=== PATIENT | male | born 1980 | race Caucasian/White ===

== ENCOUNTER 2024-10-12 07:37 | Outpatient (CLI) | payer OTHER, SELFPAY | END 2024-10-12 07:38 | disposition home or self-care (01) | LOC: AMB 10-13 09:29 | PROVIDERS: PCP Family Medicine; Visit Provider Family Medicine | DX: S09.90XA Unspecified injury of head, initial encounter (principal); R53.1 Weakness; W18.30XA Fall on same level, unspecified, initial encounter; Y92.009 Unspecified place in unspecified non-institutional (private) residence as the place of occurrence of the external cause | CPT/HCPCS: A0425; A0427 ==

== ENCOUNTER 2024-10-12 08:45 | Observation (INO) | payer OTHER, SELFPAY ==
--- OUTSIDE RECORDS SUMMARY | 2024-10-12 08:31 | XMS_ITS | Clinical Summary ---
Author Organization [facility] Address [address] [place] [id number] Care Team Providers Care Library Media Assistant Name Role Phone Jorge Macario MD Primary Care Provider Allergies No known active allergies Medications No known medications Active Problems Problem Noted Date Diagnosed Date MS (multiple sclerosis) 12/13/2023 Immunizations Name Administration Dates Next Due COVID-19 vaccine (eRALOS3-Bio NTech 30mcg/0.3mL) 12YO+ BIVALENT PFKINZA 05/26/2022 COVID-19 vaccine (eRALOS3-Bio NTech 30mcg/0.3mL) KINZA HORAN 08/28/2021,11/21/2020,10/31/2020 Influenza, IIV4 05/26/2022, 2,05/30/2019,05/24/20 18 Tdap 05/31/2012 Family History Medical History Relation Name Comments Clotting disorder Brother blood clot left leg Diabetes Father Diabetes Maternal Grandfather Meniere's disease Mother Relation Name Status Comments Brother Father Maternal Grandfather Alive Maternal Grandmother Alive Mother Alive Paternal Grandfather Paternal Grandmother Social History Tobacco Use Types Packs/Day Years Used Date Smoking Tobacco: Never Smokeless Tobacco: Never Alcohol Use Standard Drinks/Week Comments Yes 0 (1 standard drink = 0.6 oz pur e alcohol) PHQ-2 Answer Date Recorded PHQ-2 Score 0 10/23/2018 Social Connections Answer Date Recorded Frequency of Communication with Friends and Fami ly Not on file 08/20/2021 Financial Resource Strain Answer Date R ecorded Difficulty of Paying Living Expenses Not on file 08/20/2021 Difficulty of Paying Living Expenses Not on file 08/20/2021 Sex and Gender Information Value Date Recorded Sex Assigned at Not on file Legal Sex Male 5:45 AM [employer] Gender Identity Not on file Sexual Orientation Not on file Obstetrics History Last Filed Vital Signs Vital Sign Reading Time Taken Comments Blood Pressure 132/86 08/29/2018 4:42 PM [employer] Pulse 84 08/29/2018 4:42 PM [employer] Temperature 37.4 C (99.4 F) 06/21/2009 11:15 AM CDT Respiratory Rate 20 08/29/2018 4:42 PM [employer] Oxygen Saturation - - Inhaled Oxygen Concentration - - Weight 149.7 kg (330 lb) 07/26/2019 7:44 AM [employer] Height 182.9 cm (6') 07/26/2019 7:44 AM [employer] Body Mass Index 44.76 07/26/2019 7:44 AM [employer] DIRECT[employer] Plan of Treatment Health Maintenance Due Date Last Done Comments HIV for age 15-65 1997 Hepatitis C screening for age 18-79 2000 Depression screening for age 12+ 11/29/2018 11/29/2017 BMI (ht and wt on same day) for age 18+ 08/29/2019 08/29/2018, 01/03/2018, 11/29/2017 Tetanus booster 05/31/2022 05/31/2012 Lipids for age 35-44 11/29/2022 11/29/2017 COVID-19 vaccine series ( season) 2024 05/26/2022, 08/28/2021, 11/21/2020, Additional history exists Influenza for age 9-49 04/23/2024 , 08/28/2021, 05/30/2019, Additional history exists Tdap Completed 05/31/2012 Pneumococcal series for age 6-49 Aged Out No longer eligible based on patient's age to complete this topic Procedures Procedure Name Priority Date/Time Associated Diagnosis Comments LIPID PANEL W REFLEX MEASURED LDL Routine 11/29/2017 5:10 PM CDT Well adult exam from Last 3 Months or Most Recently Relevant to Health Maintenance Results * (ABNORMAL) LIPID PANEL W REFLEX MEASURED LDL (11/29/2017 5:10 PM CDT) CHOLESTEROL,TOTAL 162 100 - 199 mg/dL 11/29/2017 6:15 PM CDT [facility] TRIGLYCERIDES 117 <150 mg/dL 11/29/2017 6:15 PM CDT [facility] HDL CHOLESTEROL 39(L) >40 mg/dL 8 6:15 PM CDT [facility] NON-HDL CHOLESTEROL 123 <145 mg/dl 11/29/2017 6:15 PM CDT [facility] CHOL/HDL RATIO 4.15 <4.50 11/29/2017 6:15 PM CDT [facility] LDL CHOLESTEROL 100 <=130 mg/dL 11/29/2017 6:15 PM CDT [facility] PROVIDER ORDERED STATUS RANDOM 11/29/2017 6:15 PM CDT [facility] Blood BLOOD SPECIMEN / Unknown Venipuncture / Unknown 11/29/2017 5:10 PM CDT 11/29/2017 5:14 PM CDT Jorge Macario MD CHEMISTRY Final R esult [address] [id number] from Last 3 Months or Most Recently Relevant to Health Maintenance Insurance MEDICARE ADVANTAGE [employer] * Guarantor: [employer] Account Type Relation to Patient Date of Phone Billing Address [facility] [address] [employer] 08/23/2000 ATTN GAMALIEL MARTELL [phone] [id number] Care Teams Library Media Assistant Relationship Specialty Start Date End Date Jorge Macario MD [address] [facility] [place] [phone] PCP - General 01/23/06
--- OUTSIDE RECORDS SUMMARY | 2024-10-12 08:32 | XMS_ITS | Clinical Summary ---
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 Role Phone infusion, infusion Unavailable [phone] Conditions or Problems Problem Name Problem Code Onset Date Status Entry Date Provider Comment Standard Description Annotate Restless legs 04843697 (SNOMED CT) 02/05 Active 02/05 Cass Marleni Cherucheril PA-C Restless legs Urinary urgency 59403826 (SNOMED CT) 02/05 Active 02/05 Cass Marleni Cherucheril PA-C Urgent desire to urinate B12 deficiency 617733702 (SNOMED CT) 02/05 Active 02/05 Cass Marleni Cherucheril PA-C Cobalamin deficiency Dysphagia 40385819 (SNOMED CT) 09/18 Active 09/18 Cody Lee MD Dysphagia Urinary incontinenc e 077657910 (SNOMED CT) 09/18 Active 09/18 Cody Lee MD Urinary incontinence MRI, brain, abnormal 043217706 (SNOMED CT) 09/26 Resolved 09/26 Cody Lee MD Magnetic resonance imaging of brain abnormal Weakness, left side of body 950510399 (SNOMED CT) 09/18 Active 09/18 Cody Lee MD Left hemiparesis Multiple sclerosis 86500870 (SNOMED CT) 10/11 Resolved 10/11 Cody Lee MD Multiple sclerosis Shoulder pain, left [id number] 529079 (SNOMED CT) 12/19 Resolved 12/19 Cody Lee MD Pain of left shoulder joint Multiple sclerosis, primary progressive 176878791 (SNOMED CT) 09/18 Active 09/18 Cody Lee MD Primary progressive multiple sclerosis Monitoring of chronic therapeutic medication 939045805 (SNOMED CT) 05/07 Active 05/07 Pati Mancilla [facility] Medication monitoring Shoulder pain, left [id number] 851251 (SNOMED CT) 12/19 Removed 12/19 Nessa Barr RN Pain of left shoulder joint Anxiety 062980804 (SNOMED CT) 10/09 Active 10/10 Elisa Leonard PhD Anxiety disorder Mild cognitive impairment 263838485 (SNOMED CT) 10/09 Active 10/10 Elisa Leonard PhD Mild neurocognitive disorder Vitamin D deficiency 85911898 (SNOMED CT) 10/11 Active 10/11 Harrison Parham MD Vitamin D deficiency Multiple sclerosis 17284766 (SNOMED CT) 10/11 Removed 10/11 Harrison Parham MD Multiple sclerosis Fall, hx of Z91.81 (ICD-10-CM) 09/26 Active 09/26 Harrison Parham MD History of falling Gait imbalance 809159337 (SNOMED CT) 09/26 Active 09/26 Harrison Parham MD Abnormal gait due to impairment of balance Numbness parethesias 05716812 (SNOMED CT) 09/26 Active 09/26 Harrison Parham MD Numbness MRI, brain, abnormal 958999569 (SNOMED CT) 09/26 Removed 09/26 Harrison Parham MD Magnetic resonance imaging of brain abnormal Medications Medication Instructions Start Date Stop Date Generic Name ND Provider ESCITALOPRAM OXALATE 20 MG TABS Take 1 tablet by mouth once a day as directed escitalopram oxalate [id number] Cody Lee MD PREDNISONE 10 MG TABS Take 6 on 1st,2nd and 3rd day; take 4 on 4th, 5th and 6th day, take 2 on the 7th, 8th and 9 days; then 1 one day 10th and 11 day, then stop. 09/18 prednisone [id number] Cody Lee MD DIMETHYL FUMARATE 240 MG CPDR TAKE ONE CAPSULE BY MOUTH TWICE DAILY. STORE IN ORIGINAL CONTAINER ATROOM TEMPERATURE. 09/18 dimethyl fumarate 04797191448 Cody Lee MD Vit B12 500 mcg, Multivitamin Vit B12 500 mcg, Multivitamin Cody Lee MD OCREVUS 300 MG/10ML SOLN q 6 month ocrelizumab 23567626246 Cody Burdick MD ESCITALOPRAM OXALATE 20 MG TABS Take 1 tablet by mouth once a day as directed 08/28 escitalopram oxalate 86688443523 Bry Guzman MD DIMETHYL FUMARATE 240 MG CPDR TAKE ONE CAPSULE BY MOUTH TWICE DAILY. STORE IN ORIGINAL CONTAINER ATROOM TEMPERATURE. 10/09 dimethyl fumarate 13610825934 Harrison Parham MD ESCITALOPRAM OXALATE 20 MG TABS Take 1 tablet by mouth once a day as directed 05/04 escitalopram oxalate 95548375424 Harrison Parham MD ESCITALOPRAM OXALATE 20 MG TABS Take 1 tablet by mouth once a day as directed 08/26 escitalopram oxalate 46849012028 Nessa Barr RN DIMETHYL FUMARATE 240 MG CPDR Take 1 capsule by mouth twice a day dimethyl fumarate 05195189887 Estuardo Hercules RN TECFIDERA 240 MG CPDR null dimethyl fumarate 39672433872 Harrison Parham MD DIMETHYL FUMARATE 240 MG CPDR TAKE ONE CAPSULE BY MOUTH TWICE DAILY. STORE IN ORIGINAL CONTAINER ATROOM TEMPERATURE. 10/09 dimethyl fumarate 45345866918 Harrison Parham MD ESCITALOPRAM OXALATE 10 MG TABS Take 1 tablet once a day 04/14 escitalopram oxalate 89541758569 Estuardo Hercules RN ESCITALOPRAM OXALATE 10 MG TABS 1 tablet by mouth once a day as directed 08/26 escitalopram oxalate 40172681881 Harrison Parham MD ESCITALOPRAM OXALATE 10 MG TABS Take 1 tablet once a day 04/14 escitalopram oxalate 58266925763 Estuardo Hercules RN VITAMIN D3 64771 UNIT ORAL TABLET 50,000 IU once weekly for 3 months then OTC Vitamin D 2,000 IU once a day VITAMIN D3 43009 UNIT ORAL TABLET Estuardo Hercules RN DIMETHYL FUMARATE 240 MG CPDR Take 1 capsule by mouth twice a day 10/09 dimethyl fumarate 68782255641 Estuardo Hercules RN TECFIDERA 240 MG CPDR null dimethyl fumarate 39660681996 Harrison Parhma MD PREDNISONE 10 MG TABS Take 6 on 1st,2nd and 3rd day; take 4 on 4th, 5th and 6th day, take 2 on the 7th, 8th and 9 days; then 1 one day 10th and 11 day, then stop. 09/18 prednisone 21823074684 Harrison Parham MD PREDNISONE 10 MG TABS Take 6 on 1st,2nd and 3rd day; take 4 on 4th, 5th and 6th day, take 2 on the 7th, 8th and 9 days; then 1 one day 10th and 11 day, then stop. 04/14 PREDNISONE 20759543785 Harrison Parham MD ESCITALOPRAM OXALATE 10 MG TABS TAKE 1 TABLET DAILY 04/14 ESCITALOPRAM OXALATE 50901813180 Harrison Parham MD DIMETHYL FUMARATE 240 MG CPDR TAKE ONE CAPSULE BY MOUTH TWICE DAILY. STORE IN ORIGINAL CONTAINER ATROOM TEMPERATURE. 10/09 DIMETHYL FUMARATE 79538964824 Harrison Parham MD TECFIDERA 240 MG CPDR null 04/14 TECFIDERA 240 mg cpDR [id number] System Maintenance TECFIDERA 240 MG CPDR TAKE ONE CAPSULE BY MOUTH TWICE DAILY. STORE IN ORIGINAL CONTAINER AT ROOM TEMPERATURE. DIMETHYL FUMARATE 10273316866 Harrison Parham MD ESCITALOPRAM OXALATE 10 MG TABS One PO q day 09/27 ESCITALOPRAM OXALATE 62684167453 Harrison Parham MD TECFIDERA 120 & 240 MG ORAL Start: 120 mg PO bid x7 days, then 240 mg PO bid 05/22 DIMETHYL FUMARATE 19231900391 Harrison Parham MD PREDNISONE 20 MG TABS 3 PO for 3 days, then 2 PO q day for 3 days, then one for 6 days then stop. 05/22 PREDNISONE 70539453910 Harrison Parham MD TECFIDERA 240 MG CPDR TAKE ONE CAPSULE BY MOUTH TWICE DAILY. STORE IN ORIGINAL CONTAINER ATROOM TEMPERATURE. 11/15 DIMETHYL FUMARATE 47863559529 Harrison Parham MD PREDNISONE 20 MG TABS 3 PO for 3 days, then 2 PO q day for 3 days, then one for 6 days then stop. 05/22 PREDNISONE 52024362611 Harrison Parham MD TECFIDERA 240 MG CPDR TAKE ONE CAPSULE BY MOUTH TWICE DAILY (AFTER COMPLETING STARTER PACK) 01/26 DIMETHYL FUMARATE 61713827392 Harrison Parham MD TECFIDERA 120 & 240 MG ORAL Start: 120 mg PO bid x7 days, then 240 mg PO bid 05/22 DIMETHYL FUMARATE 60128096806 Harrison Parham MD VITAMIN D3 52939 UNIT ORAL TABLET 50,000 IU once weekly for 3 months then OTC Vitamin D 2,000 IU once a day 04/14 CHOLECALCIFEROL 04405384632 Harrison Parham MD TECFIDERA 120 & 240 MG ORAL Start: 120 mg PO bid x7 days, then 240 mg PO bid; Info: december. dose to 120 mg PO bid 10/21 DIMETHYL FUMARATE 58603229867 Harrison Parham MD VITAMIN D 50,000 IU once weekly for 3 months then OTC Vitamin D 2,000 IU once a day 10/13 VITAMIN D Harrison Parham MD Medications Administered No information available. Allergies, Adverse Reactions, Alerts Observed no known allergies at Results Date Name Value Unit Range Flag Description Office Visit: [facility] Risk [facility] - Screen patient for falls, if positive, provide counseling on fall prevention Fall risk assessment SMOK STATUS unknown if ever smoked Tobacco smoking status Replaced Document: (P) BETA 2 GLYCOPROTEIN I AB (IGG,IGA,IGM), B2 GLYCOPROTEIN ... INTRP * Interpretatio n VIT D2 1,25 * Vitamin D 2, 1,25(OH)2 VIT D3 1,25 * Vitamin D 3, 1,25(OH)2 VIT D 1,25OH * vitamin D 1,25-dihydroxy, serum T4, FREE * ng/dL Thyroxine (T 4) free [Mass/volume] in Serum or Plasma T4, TOTAL * ug/dL Thyroxine ( T4) [Mass/volume] in Serum or Plasma FRT4 * FREE T4 [id number] S * angioten sin 1 converting enzyme, serum ANTICARD IGM * cardioli pin antibody, IgM CARDIOLIPIN * U anti-card iolipin antibody, serum ANTICARD IGA * cardioli pin antibody, IgA [id number] * U/mL Proteina se-3 antibody SSB * Sjogren's syndrome-B, extractable nuclear Ab, serum SSA * Sjogren's syndrome-A, extractable nuclear Ab, serum CRP * mg/dL C reactive pr otein [Mass/volume] in Serum or Plasma RHEUMOT FACT * [iU]/mL Rheumato id factor [Units/volume] in Serum or Plasma ANASCR IFA * EMILIANO SCREEN , IFA LYME DIS AB * Borrelia burgdorferi.VlsE1+p epC10 Ab [Units/volume] in Serum by Immunoassay PTT LA * PTT-LA LUPUS INHIB * LUPUS ANT ICOAGULANT (PT; PPP; QN; ) NEUT CT MANU 3650 CELLS/UL 10*3/mm 3 1500-780 0 N neutrophil count, blood, manual ESR * mm/h Erythrocyte sedimentation rate by Westergren method BILI INDIREC * mg/dL bilirubi n, serum, indirect BILI DIRECT * mg/dL Bilirubin .direct [Mass/volume] in Serum or Plasma ALK PHOS * U/L Alkaline phosphatase [Enzymatic activity/volume] in Blood BILI TOTAL * mg/dL Bilirubin. total [Mass/volume] in Serum or Plasma A/G RATIO * Albumin/Roberta bulin [Mass Ratio] in Serum or Plasma GLOBULIN TOT * g/dL Globulin [Mass/volume] in Serum ALBUMIN * g/dL Albumin [Mass/volume] in Serum or Plasma PROTEIN, TOT * g/dL Protein [Mass/volume] in Serum or Plasma CALCIUM * mg/dL Calcium [Moles/volume] in Serum or Plasma CO2 TOTAL * mmol/L carbon diox chikis, serum, total CHLORIDE * mmol/L Chloride [Moles/volume] in Serum or Plasma POTASSIUM * mmol/L Potassium [Moles/volume] in Serum or Plasma SODIUM * mmol/L Sodium [Moles/volume] in Serum or Plasma BUN/CREAT * Urea nitrogen/Creatinine [Mass Ratio] in Serum or Plasma EGFR IF AFA * mL/min/ 1.73m2 Glomerular filtration rate/1.73 sq M.predicted among blacks [Volume Rate/Area] in Serum, Plasma or Blood by Creatinine-based formula (MDRD) EGFR NOT AFA * mL/min/ 1.73m2 Glomerular filtration rate/1.73 sq M.predicted among non-blacks [Volume Rate/Area] in Serum, Plasma or Blood by Creatinine-based formula (MDRD) CREATININE * mg/dL Creatinine [Mass/volume] in Serum or Plasma BUN * mg/dL Urea nitrogen [Mass/volume] in Serum or Plasma GLUCOSE SER * mg/dL Glucose [Mass/volume] in Serum or Plasma LT_GGT * GGT ACETCHBND AB * acetylch oline binding antibody ACETCHO R AB * nmol/L anti-luz marina tylcholine receptor antibody VOLTGATEDCC * Voltage G ated Calcium Channel Antibodies [id number] * Beta-2 G lycoprotein 1 antibody, IgA [id number] * Beta-2 G lycoprotein 1 antibody, IgM [id number] * Beta-2 G lycoprotein 1 antibody, IgG Replaced Document: (P) AST, ALT, LYMPHOCYTE SUBSET PANEL 4, CBC (INCLUDES DIFF/ ... VIT B1 PLSM * ug/L Vitamin B 1 (thiamine), plasma VITD 25OH TO * VITAMIN D, 25 OH, TOTAL B-12 * pg/mL Cobalamin (Vi tamin B12) [Mass/volume] in Serum or Plasma TSH * u[iU]/m L Thyrotropin [Units/volume] in Serum or Plasma METHYL MALON * nmol/L methylma lonic acid (MMA), serum TEST NAME METHYLMALONIC ACID test, name Internal Other: Verbal Autho rization/Emergency Contact - OBS VERBAL_EMER DONE Verbal authorization and emergency contact Internal Other: Authorizatio n - OBS [email or web address] Yes Authoriza tion: Release of Information - Authorize [facility] - Payment and Healthcare Operations ROIAUTHOTHER Yes Authoriz ation: Release of Information - Authorize Others/Insurance - Payment and Healthcare Operations HIECONSENT Yes Consent To Release information to the Health Information Exchange (HIE) [email or web address] Yes Authorizat ion: Authorization for [facility] to leave messages, voicemail, send text messages, send emails AUTHRELHCARE Yes Authoriz ation: Release/Retrieval of Information to/from Healthcare Facilities, Pharmacy Benefit Payers and Providers AUTHPRIVPRAC Yes Authoriz ation: Notice of privacy practices AUTHBENEFIT Yes Authoriza tion: Assignment of Benefits and Payment Agreement Replaced Document: (P) AST, ALT, LYMPHOCYTE SUBSET PANEL 4, CBC (INCLUDES DIFF/ ... % CD3 * % CD3 lymphocyt es, percent [id number] * % B Lymphs % (CD19) ABS CD19 * ABSOLUTE CD1 9 ANTI-HBC * Hepatitis B virus core IgG+IgM Ab [Presence] in Serum ANTI-HBS * Hepatitis B virus surface Ab [Presence] in Serum IMMUNOGLOM * mg/dL Immunoglob ulin M IMMUNO G * mg/dL IMMUNOGLOBUL IN G IMMUNOGLOB A * IMMUNOGL OBULIN A BASOPHIL % 0.7 % N Basophils/ 100 leukocytes in Blood by Manual count EOSINOPHIL % 2.4 % N Eosinoph ils/100 leukocytes in Blood by Manual count MONOCYTE % 12.3 % N Monocytes/ 100 leukocytes in Blood by Automated count LYMPHS % 24.6 % N Lymphocytes/ 100 leukocytes in Blood by Automated count PMN % 60 % N Neutrophils/1 00 leukocytes in Blood by Automated count BASOPH COUNT 41 CELLS/UL 10*3/mm 3 0-200 N Basophils [#/volume] in Blood by Manual count EOS COUNT 142 CELLS/UL 10*3/mm 3 15-500 N eosinophil count, blood MONOSCT AUTO 726 CELLS/UL 10*3/uL 200-950 N Mon ocytes [#/volume] in Blood by Automated count LYMPH COUNT 1451 CELLS/UL 10*3/mm 3 850-3900 N lymphocyte count, blood NEUTRO COUNT 3540 CELLS/UL 10*3/mm 3 1500-780 0 N neutrophil count, blood MPV 12.5 fL 7.5-12.5 N Platelet solis n volume [Entitic volume] in Blood by Warren PLATELETS 189 THOUSAND/UL 10*3/mm 3 140-400 N Platelets [#/volume] in Blood by Automated count RDW 11.8 % 11.0-15. 0 N Erythrocyte distribution width [Ratio] by Automated count MCHC 33.3 G/DL 32.0-36. 0 N MCHC [Mass/volume] by Automated count MCH 30.6 pg 27.0-33. 0 N MCH [Entitic mass] by Automated count MCV 92.1 fL 80.0-100 .0 N MCV [Entitic volume] by Automated count HCT 47.5 % 38.5-50. 0 N Hematocrit [Volume Fraction] of Blood by Automated count HGB 15.8 g/dL 13.2-17. 1 N Hemoglobin [Mass/volume] in Blood RBC 5.16 MILLION/UL 10*6/mm 3 4.20-5.8 0 N Erythrocytes [#/volume] in Blood by Automated count WBC 5.9 THOUSAND/UL 10*3/mm 3 3.8-10.8 N Leukocytes [#/volume] in Blood by Automated count COMMENT#1 * COMMENT #1 ABS LYMPHOCY * 10*3/uL Absolute Lymphocytes CD4/CD8 % * % T-helper ce lls (CD4) to T-suppressor cells (CD8) ratio ABSOLUTE CD8 * absolute CD8 T-SUPPRESS % * % T-suppre ssor cells (CD8) as percent of blood lymphocytes ABSOLUTECD4 * {Cells} /uL Absolute CD4 T-HELPER % * % T-helper c ells (CD4) as percent of blood lymphocytes SGPT (ALT) * U/L Alanine aminotransferase [Enzymatic activity/volume] in Serum or Plasma SGOT (AST) * U/L Aspartate aminotransferase [Enzymatic activity/volume] in Serum or Plasma Lab Report: STRATIFY JCV(TM) AB (WITH INDEX) W/RFL INHIBITION JCV ANTIBODY NEGATIVE N JCV Ant ibody Results ZZ-GE-unk 0.12 N GE use only - for LinkLogic import when terms are not otherwise specified Office Visit: Office Visit f ax MEDS REVIEW Done Documenta tion of current medications (procedure) Plan of Care Type Date Detail Appointment 11:00 AM Cass Gooden PA-C, [address], [address], [place], [address], Pending order Follow up SABRINA Pending order Follow up SABRINA Pending order [facility] Pending order [facility] Pending order ALT (SGPT) Pending order AST (SGOT) Pending order CBC with Diff/Pl atelet Pending order Hepatitis B Core Ab Pending order Hepatitis B Surf luz marina Ab Pending order Hepatitis B Surf luz marina Antigen Pending order JESUSITA Virus Antibod y w/Reflex to Inhibition Assay Pending order Immunoglobulins IgG/A/M Pending order Physical Therapy Pending order Physical Therapy Pending order Follow up Pending order MRI-Brain W/WO M S Protocol Pending order MRI-Cervical W/W O MS Protocol Pending order MRI-Thoracic W/W O MS Protocol Pending order [facility] Pending order [facility] Pending Order exclud ed from report: Pending order Work Note Pending order ALT (SGPT) Pending order AST (SGOT) Pending order CBC with Diff/Pl atelet Pending order CD4/CD8 Ratio Pr ofile Pending order CD19 (T and B Ce lls Total) Do not Schedule on Wednesday Pending order Hepatitis B Core Ab Pending order Hepatitis B Surf luz marina Ab Pending order Hepatitis B Surf luz marina Antigen Pending order JESUSITA Virus Antibod y w/Reflex to Inhibition Assay Pending order Immunoglobulins IgG/A/M Pending order ALT (SGPT) Pending order AST (SGOT) Pending order CBC with Diff/Pl atelet Pending order CD4/CD8 Ratio Pr ofile Pending order CD19 (T and B Ce lls Total) Do not Schedule on Wednesday Pending order Hepatitis B Core Ab Pending order Hepatitis B Surf luz marina Ab Pending order Hepatitis B Surf luz marina Antigen Pending order JESUSITA Virus Antibod y w/Reflex to Inhibition Assay Pending order Immunoglobulins IgG/A/M Pending order [facility] Pending order [facility] Pending Order exclud ed from report: Pending order Urology Referral Pending order [facility] Pending order Follow up in cli concepcion or telemedicine with provider or SABRINA Pending order Urology Referral Pending order Instructions for Staff Pending order Ferritin Serum Pending order Vitamin D 25 Hyd louisa Pending order Vitamin B12 Pending order MRI-Brain W/WO M S Protocol Pending order MRI-Cervical W/W O MS Protocol Pending order MRI-Thoracic W/W O MS Protocol Pending order ALT (SGPT) Pending order AST (SGOT) Pending order CBC with Diff/Pl atelet Pending order CD4/CD8 Ratio Pr ofile Pending order CD19 (T and B Ce lls Total) Pending order Hepatitis B Core Ab Pending order Hepatitis B Surf luz marina Ab Pending order Hepatitis B Surf luz marina Antigen Pending order Immunoglobulins IgG/A/M Pending order JESUSITA Virus Antibod y w/Reflex to Inhibition Assay Pending order Hepatitis B Surf luz marina Ab Pending Order exclud ed from report: Pending order Hepatitis B Surf luz marina Antigen Pending Order exclud ed from report: Pending order Hepatitis B Core Ab Pending Order exclud ed from report: Pending order ALT (SGPT) Pending order AST (SGOT) Pending order CBC with Diff/Pl atelet Pending order CD4/CD8 Ratio Pr ofile Pending order CD19 (T and B Ce lls Total) Pending order Hepatitis B Core Ab Pending order Hepatitis B Surf luz marina Ab Pending order Hepatitis B Surf luz marina Antigen Pending order JESUSITA Virus Antibod y w/Reflex to Inhibition Assay Pending order Immunoglobulins IgG/A/M Pending order ALT (SGPT) Pending order AST (SGOT) Pending order CBC with Diff/Pl atelet Pending order CD4/CD8 Ratio Pr ofile Pending order CD19 (T and B Ce lls Total) Pending order Hepatitis B Core Ab Pending order Hepatitis B Surf luz marina Ab Pending order Hepatitis B Surf luz marina Antigen Pending order JESUSITA Virus Antibod y w/Reflex to Inhibition Assay Pending order Immunoglobulins IgG/A/M Pending order Speech Therapy Pending order ALT (SGPT) Pending order AST (SGOT) Pending order CBC with Diff/Pl atelet Pending order CD4/CD8 Ratio Pr ofile Pending order JESUSITA Virus Antibod y w/Reflex to Inhibition Assay Pending order CD19 (T and B Ce lls Total) Pending order CD19 (T and B Ce lls Total) Pending order Hepatitis B Surf luz marina Ab Pending order Hepatitis B Surf luz marina Antigen Pending order Immunoglobulins IgG/A/M Pending order Other Lab Pending order Follow up in cli concepcion or telemedicine Pending order Physical Therapy Pending order Other Referral Pending order Follow up SABRINA in clinic Pending order Patient Instruct ions Pending order Methylmalonic Ac id Serum (MMA) Pending order MRI-Cervical W/W O MS Protocol Pending order MRI-Thoracic W/W O MS Protocol Pending order Vitamin B1 (Thia mine) Pending order Vitamin B12 Pending order Vitamin D 25 Hyd louisa Pending order TSH Pending order NMO Spectrum Zahra l (AQP4 with Reflex to MOG) Pending order Other Lab Pending order Follow up Pending order ALT (SGPT) Pending order AST (SGOT) Pending order CBC with Diff/Pl atelet Pending order CD4/CD8 Ratio Pr ofile Pending order CD19 (T and B Ce lls Total) Pending order Hepatitis B Core Ab Pending order Hepatitis B Surf luz marina Ab Pending order Hepatitis B Surf luz marina Antigen Pending order JESUSITA Virus Antibod y w/Reflex to Inhibition Assay Pending order Immunoglobulins IgG/A/M Pending order Other Lab Pending Order exclud ed from report: Pending order Other Order Pending order Physical Therapy Pending order MRI-Brain W/O MS Protocol Pending order Consult Pending order Follow up after testing Pending order ALT (SGPT) Pending order AST (SGOT) Pending order CBC with Diff/Pl atelet Pending order Follow up Pending order MRI-Shoulder W/O Pending order MRI-Brain W/WO M S Protocol Pending order Work Note Pending order Patient Instruct ions Pending order Follow up SABRINA Pending order MRI-Brain W/WO M S Protocol Pending order MRI-Brain W/WO M S Protocol Pending order MRI-Cervical W/W O MS Protocol Pending order Neuropsych Testi ng Pending order Follow up after testing Pending Order exclud ed from report: Pending order Physical Therapy Pending order Patient Instruct ions Pending order Follow up Pending Order exclud ed from report: Pending order Follow up Pending order Follow up after testing Pending order Follow up Pending order Other Referral Pending order Patient Instruct ions Pending order Follow up Pending order JESUSITA Virus Antibod y w/Reflex to Inhibition Assay Pending order Patient Instruct ions Pending order ALT (SGPT) Pending order AST (SGOT) Pending order CBC with Diff/Pl atelet Pending order Vitamin D 25 Hyd louisa Pending order Other Referral Pending order ALT (SGPT) Pending order AST (SGOT) Pending order CBC with Diff/Pl atelet Pending order Vitamin D 25 Hyd louisa Pending order Other Test Pending order Hepatic Function Panel (7) Pending order CBC with Diff/Pl atelet Pending order Vitamin D 25 Hyd louisa Pending order MRI-Brain W/O Pending order MRI-Cervical W/O Pending order Other Referral Pending order JESUSITA Virus Antibod y w/Reflex to Inhibition Assay Pending order Follow up Pending order LP-Lumbar Punctu re Pending order LP-Lumbar Punctu re (CSF processed at [facility]) Pending order Angiotensin-1 Co nverting Enzyme CSF Pending order Bacterial Mening itis Antigen Panel CSF Pending order Cell Count & Dif f CSF Pending order Cytology (test f or malignant cells) CSF Pending order Glucose CSF Pending order Multiple Scleros is Screen CSF w/Serum (lab appt needed) Pending order Myelin Basic Pro tein CSF Pending order ALT (SGPT) Pending order EMILIANO Pending order ANCA Pending order LUZ MARINA (Angiotensin Converting Enzyme) Pending order Anti Cardiolipin Ab - IgA/G/M Pending order AST (SGOT) Pending order Beta 2 Glycoprot ein (IgA/G/M) Pending order CBC no Diff/ Tiffany telet Pending order CBC with Diff/Pl atelet Pending order CD4/CD8 Ratio Pr ofile Pending order C Reactive Prote in (CRP) Qn Pending order Comp Metabolic P jacqueline (14) Pending order ESR (Sedimentati on Rate) Pending order GGT (Gamma GT) Pending order Hepatic Function Panel (7) Pending order HIV 1/2 Ab Scree maricarmen Pending order HTLV 1/2 Ab Pending order JESUSITA Virus Antibod y w/Reflex to Inhibition Assay Pending order Lyme Total Ab w/ Reflex (reflex to Western Blot) Pending order Lupus Anticoagul ant Screen Pending order Methylmalonic Ac id Serum (MMA) Pending order NMO-IgG (Neuromy elitis [facility]) Pending order Paraneoplastic A b - [facility] Pending order Paraneoplastic A b - Torres sendout (send to [facility]) Pending order Rapid Plasma Lesia gin (RPR) Pending order Rheumatoid (RA) Factor Pending order Sjogren's Ab - S SA/SSB (ANTI-Ro/ANTI-La) Pending order T4 Pending order T4 Free Direct Pending order TSH Pending order Vitamin B1 (Thia mine) Pending order Vitamin D 25 Hyd louisa Pending order Vitamin D 1;25-D ihydroxy Patient education Medications Procedures Code Procedure Name Date Entry Date ORDERS Follow up [facility]-[id number] Documentation of current medicatio ns [id number] MRI-Brain W/WO MS Protocol 2 [id number] MRI-Cervical W/WO MS Protocol [id number] MRI-Thoracic W/WO MS Protocol CPT-I3587M ProHance Gadolinium- based MR Contrast - 20 ml vial CPT-91250 MRI Brain W/WO CPT-82199 MRI Cervical W/WO CPT-01495 MRI Thoracic W/WO ORDERS [facility] ORDERS Work Note ORDERS ALT (SGPT) ORDERS AST (SGOT) ORDERS CBC with Diff/Platelet 11/24 ORDERS Hepatitis B Surface Ab 11/24 ORDERS Hepatitis B Core Ab ORDERS Hepatitis B Surface Antigen ORDERS CD4/CD8 Ratio Profile 0 11/24 ORDERS Immunoglobulins IgG/A/M 2023 ORDERS CD19 (T and B Cells Total) Do not Schedul e on Wednesday ORDERS JESUSITA Virus Antibody w/Reflex to Inhibition Assay ORDERS CD19 (T and B Cells Total) Do not Schedul e on Wednesday ORDERS ALT (SGPT) ORDERS AST (SGOT) ORDERS CBC with Diff/Platelet 05/12 ORDERS CD4/CD8 Ratio Profile 2022/0 05/12 ORDERS Hepatitis B Surface Ab 05/12 ORDERS Hepatitis B Surface Antigen ORDERS Hepatitis B Core Ab ORDERS Immunoglobulins IgG/A/M 2022 ORDERS JESUSITA Virus Antibody w/Reflex to Inhibition Assay ORDERS Ocrevus Infusion [facility]-[id number] Urology Referral ORDERS Ferritin Serum ORDERS Instructions for Staff 02/05 ORDERS Follow up in clinic or telemedicine with provider or SABRINA [facility]-[id number] Urology Referral ORDERS Vitamin D 25 Hydroxy ORDERS Vitamin B12 ORDERS Vitamin D 25 Hydroxy ORDERS Vitamin B12 [id number] MRI-Brain W/WO MS Protocol 2 [id number] MRI-Thoracic W/WO MS Protocol [id number] MRI-Cervical W/WO MS Protocol ORDERS Hepatitis B Surface Ab 11/03 ORDERS Hepatitis B Surface Antigen ORDERS Hepatitis B Core Ab ORDERS ALT (SGPT) ORDERS AST (SGOT) ORDERS CBC with Diff/Platelet 11/03 ORDERS CD4/CD8 Ratio Profile 11/03 ORDERS CD19 (T and B Cells Total) 2 ORDERS Immunoglobulins IgG/A/M 2022 ORDERS JESUSITA Virus Antibody w/ Reflex to Inhibition Assay ORDERS ALT (SGPT) ORDERS AST (SGOT) ORDERS CBC with Diff/Platelet 11/03 ORDERS CD4/CD8 Ratio Profile 11/03 ORDERS CD19 (T and B Cells Total) 2 ORDERS Immunoglobulins IgG/A/M 2022 ORDERS JESUSITA Virus Antibody w/ Reflex to Inhibition Assay ORDERS ALT (SGPT) ORDERS AST (SGOT) ORDERS CBC with Diff/Platelet 07/21 ORDERS CD4/CD8 Ratio Profile 09/20 ORDERS CD19 (T and B Cells Total) 2 ORDERS Hepatitis B Core Ab ORDERS Hepatitis B Surface Ab 07/21 ORDERS Hepatitis B Surface Antigen ORDERS JESUSITA Virus Antibody w/ Reflex to Inhibition Assay ORDERS Immunoglobulins IgG/A/M 2021 ORDERS ALT (SGPT) ORDERS AST (SGOT) ORDERS CBC with Diff/Platelet 05/07 ORDERS CD4/CD8 Ratio Profile 05/07 ORDERS CD19 (T and B Cells Total) 2 ORDERS Hepatitis B Core Ab ORDERS Hepatitis B Surface Ab 05/07 ORDERS Hepatitis B Surface Antigen ORDERS JESUSITA Virus Antibody w/ Reflex to Inhibition Assay ORDERS Immunoglobulins IgG/A/M 2021 ORDERS Speech Therapy ORDERS Speech Therapy ORDERS ALT (SGPT) ORDERS AST (SGOT) ORDERS CBC with Diff/Platelet 09/21 ORDERS CD4/CD8 Ratio Profile 09/21 ORDERS JESUSITA Virus Antibody w/ Reflex to Inhibition Assay ORDERS CD19 (T and B Cells Total) 2 ORDERS CD19 (T and B Cells Total) 2 ORDERS Hepatitis B Surface Ab 09/21 ORDERS Hepatitis B Surface Antigen ORDERS Immunoglobulins IgG/A/M 2022 ORDERS Other Lab ORDERS Physical Therapy [id number] Other Referral ORDERS Follow up in clinic or telemedicine 09/18 [facility]-[id number] Documentation of current medicatio ns ORDERS Ocrevus Infusion ORDERS Follow up SABRINA in clinic 2021 ORDERS Patient Instructions ORDERS Methylmalonic Acid Serum (MMA) ORDERS TSH ORDERS NMO Spectrum Eval (AQP4 with Reflex to MO G) ORDERS Vitamin D 25 Hydroxy ORDERS Vitamin B12 ORDERS Vitamin B1 (Thiamine) 01/16 CPT-[id number] ProHance Gadolinium- based MR Contrast - 20 ml vial CPT-14953 MRI Cervical W/WO CPT-04705 MRI Thoracic W/WO [id number] MRI-Cervical W/WO MS Protocol [id number] MRI-Thoracic W/WO MS Protocol ORDERS Follow up ORDERS ALT (SGPT) ORDERS AST (SGOT) ORDERS CBC with Diff/Platelet 01/16 ORDERS CD4/CD8 Ratio Profile 01/16 ORDERS Hepatitis B Core Ab ORDERS Hepatitis B Surface Ab 01/16 ORDERS Hepatitis B Surface Antigen ORDERS Immunoglobulins IgG/A/M 2021 ORDERS CD19 (T and B Cells Total) 2 ORDERS JESUSITA Virus Antibody w/ Reflex to Inhibition Assay ORDERS Other Lab [id number] MRI-Brain W/O MS Protocol 10/01/21 CPT-32621 MRI Brain W/O ORDERS Other Order ORDERS Physical Therapy ORDERS CBC with Diff/Platelet 01/10 ORDERS AST (SGOT) ORDERS ALT (SGPT) [id number] Consult ORDERS Follow up after testing 2020 [id number] Documentation of current medicatio ns ORDERS Follow up [id number] MRI-Brain W/WO MS Protocol 2 [id number] MRI-Shoulder W/O CPT-H5629O ProHance Gadolinium- based MR Contrast - 20 ml vial CPT-52213 MRI Brain W/WO CPT-55185 MRI Upper Extremity (JOINT) W/O 6 ORDERS Patient Instructions [facility]-[id number] Documentation of current medicatio ns ORDERS Work Note ORDERS Follow up SABRINA ORDERS Follow up [id number] MRI-Brain W/WO MS Protocol 2 ORDERS Neuropsych Testing 0 [id number] MRI-Cervical W/WO MS Protocol [id number] MRI-Brain W/WO MS Protocol 2 CPT-99827 MRI Brain W/WO CPT-K3718I ProHance Gadolinium- based MR Contrast - 20 ml vial CPT-23901 MRI Cervical W/WO CPT-57716 Npsy Interview w/Provider - 1st hour 2019 CPT-47207 Npsy Interp/Rpt by Provider - 1st hour 12/10/16 CPT-30832 Npsy Interp/Rpt by Provider - 3 hours CPT-06608 Npsy Test by Provide r (2+ Tests) - 1st 30 min CPT-83223 Npsy Test by Provide r (2+ Tests) - 2.5 hours ORDERS Follow up after testing 2019 [facility]-[id number] Documentation of current medicatio ns ORDERS Follow up ORDERS Patient Instructions ORDERS Physical Therapy [id number] Other Referral ORDERS Patient Instructions ORDERS Patient Instructions SCT-[id number] Other Referral SCT-[id number] Documentation of current medicatio ns ORDERS JESUSITA Virus Antibody w/ Reflex to Inhibition Assay ORDERS ALT (SGPT) ORDERS AST (SGOT) ORDERS CBC with Diff/Platelet 05/22 ORDERS Vitamin D 25 Hydroxy ORDERS Follow up ORDERS Vitamin D 25 Hydroxy ORDERS CBC with Diff/Platelet 01/20 ORDERS AST (SGOT) ORDERS ALT (SGPT) ORDERS Other Test SCT-[id number] Documentation of current medicatio ns SCT-[id number] Other Referral [facility]-[id number] Documentation of current medicatio ns ORDERS Hepatic Function Panel (7) 2 [id number] MRI-Brain W/O [id number] MRI-Cervical W/O ORDERS CBC with Diff/Platelet 12/27 ORDERS Vitamin D 25 Hydroxy ORDERS JESUSITA Virus Antibody w/ Reflex to Inhibition Assay [id number] Documentation of current medicatio ns ORDERS Follow up [id number] LP-Lumbar Puncture 4 ORDERS LP-Lumbar Puncture ( CSF processed at [facility]) CPT-03235 Lumbar Puncture, Diagnostic CPT-55254 Fluoroscopy Guidance and Localization 201 04/24/11 CPT-6045F PQRS Fluoro Documented 10/03 CPT-38902 Blood Draw ORDERS CBC with Diff/Platelet 09/26 ORDERS T4 Free Direct ORDERS TSH ORDERS Vitamin D 25 Hydroxy ORDERS ESR (Sedimentation Rate) 201 04/24/04 ORDERS Comp Metabolic Panel (14) 20 11/10/03 ORDERS GGT (Gamma GT) ORDERS Hepatic Function Panel (7) 2 ORDERS T4 ORDERS CD4/CD8 Ratio Profile 09/26 ORDERS C Reactive Protein (CRP) Qn ORDERS Rheumatoid (RA) Factor 09/26 ORDERS Lyme Total Ab w/Refl ex (reflex to Western Blot) ORDERS Rapid Plasma Reagin (RPR) 20 11/10/03 ORDERS EMILIANO ORDERS LUZ MARINA (Angiotensin Converting Enzyme) 09/26 ORDERS Anti Cardiolipin Ab - IgA/G/M ORDERS Beta 2 Glycoprotein (IgA/G/M) ORDERS ANCA ORDERS Sjogren's Ab - SSA/SSB (ANTI-Ro/ANTI-La) ORDERS Methylmalonic Acid Serum (MMA) ORDERS Vitamin D 1;25-Dihydroxy 201 04/24/04 ORDERS HTLV 1/2 Ab ORDERS NMO-IgG (Neuromyelitis [facility]) ORDERS Vitamin B1 (Thiamine) 09/26 ORDERS Lupus Anticoagulant Screen 2 ORDERS Paraneoplastic Ab - [facility] 20 11/10/03 ORDERS Paraneoplastic Ab - [facility] sendout (send to [facility]) ORDERS Glucose CSF ORDERS Multiple Sclerosis S creen CSF w/Serum (lab appt needed) ORDERS Myelin Basic Protein CSF 201 04/24/04 ORDERS ALT (SGPT) ORDERS AST (SGOT) ORDERS CBC no Diff/ Platelet 09/26 ORDERS HIV 1/2 Ab Screening ORDERS Angiotensin-1 Converting Enzyme CSF 09/26 ORDERS Bacterial Meningitis Antigen Panel CSF 20 11/10/03 ORDERS Cell Count & Diff CSF 09/26 ORDERS Cytology (test for malignant cells) CSF 2 ORDERS JESUSITA Virus Antibody w/ Reflex to Inhibition Assay [facility]-[id number] Documentation of current medicatio ns [facility]-[id number] Documentation of current medicatio ns Vital Signs Date Name Value Unit Description Heart Rate 66 /min pulse rate Height 72 [in_us] height E&M Weight Measured 300 [lb_av] weight E& M BMI (Body Mass Index) 52.32 kg/m2 Bod y Mass Index (Ratio) BP Diastolic 88 mm[Hg] blood pressu re, diastolic BP Systolic 130 mm[Hg] blood pressur e, systolic Respiratory Rate 11 /min respirat ory rate E&M Immunizations No information available. Advance Directives No information available.
[2024-10-12 08:36] VITALS: BP 111/83; PULSE 88; RESP 16; TEMP 36.9; O2SAT 95; BMI 38.0
[2024-10-12 09:00] LABS: Basophils Absolute Auto 0.02 K/uL (0.00-0.30); Basophils Percent Auto 0.2 % (0.0-3.0); Eosinophils Absolute Auto 0.02 K/uL (0.00-0.50); Eosinophils Percent Auto 0.2 % (0.0-7.0); Hematocrit 44.9 % (37.0-53.0); Hemoglobin* 15.2 gm/dL (13.5-17.5); Immature Granulocytes Abs Auto 0.02 K/uL (0.00-0.30); Immature Granulocytes Pct Auto 0.2 %; Mean Corpuscular HGB Conc 34 gm/dL (32-36); Mean Corpuscular Hemoglobin 30 pg (26-34); Mean Corpuscular Volume 88 fL (80-100); Monocytes Percent Auto 13.4 % (0.0-11.0); Platelet Count* 159 K/uL (140-440); RDW Coefficient of Variation % 11.7 % (11.5-15.5); White Blood Count* 10.11 K/uL (4.50-11.00)
--- OUTSIDE RECORDS SUMMARY | 2024-10-12 09:01 | XMS_ITS | Clinical Summary ---
Author Organization [employer] [facility] Address [address] [place] [address] Care Team Providers Care Oncology Social Work Name Role Phone Jorge Macario MD Primary Care Provider Allergies No known active allergies Medications No known medications Active Problems Problem Noted Date Diagnosed Date MS (multiple sclerosis) 12/13/2023 Immunizations Name Administration Dates Next Due COVID-19 vaccine ([employer]-Bio NTech 30mcg/0.3mL) 12YO+ BIVALENT PF MDV 05/26/2022 COVID-19 vaccine (Pfizer-Bio NTech 30mcg/0.3mL) PFKINZA 08/28/2021,11/21/2020,10/31/2020 Influenza, IIV4 05/26/2022, 2,05/30/2019,05/24/20 18 Tdap [...] on file Legal Sex Male 5:45 AM [employer] Gender Identity Not on file Sexual Orientation Not on file Obstetrics History Last Filed Vital Signs Vital Sign Reading Time Taken Comments Blood Pressure 132/86 08/29/2018 4:42 PM [employer] Pulse 84 08/29/2018 4:42 PM [employer] Temperature 37.4 C (99.4 F) 06/21/2009 11:15 AM CDT Respiratory Rate 20 08/29/2018 4:42 PM [employer]IST Oxygen Saturation - - Inhaled Oxygen Concentration - - Weight 149.7 kg (330 lb) 07/26/2019 7:44 AM [employer] SERV[employer]IST Height 182.9 cm (6') 07/26/2019 7:44 AM [employer] Body Mass Index 44.76 07/26/2019 7:44 AM [employer] SERV[employer]IST Plan of Treatment Health Maintenance Due Date [...] - 199 mg/dL 11/29/2017 6:15 PM CDT [facility] TRIGLYCERIDES 117 <150 mg/dL 11/29/2017 6:15 PM CDT [facility] HDL CHOLESTEROL 39(L) >40 mg/dL 8 6:15 PM CDT [facility] NON-HDL CHOLESTEROL 123 <145 mg/dl 11/29/2017 6:15 PM CDT [facility] CHOL/HDL RATIO 4.15 <4.50 11/29/2017 6:15 PM CDT [facility] LDL CHOLESTEROL 100 <=130 mg/dL 11/29/2017 6:15 PM CDT [facility] PROVIDER ORDERED STATUS RANDOM 11/29/2017 6:15 PM CDT [facility] Blood BLOOD SPECIMEN / Unknown Venipuncture / Unknown 11/29/2017 5:10 PM CDT 11/29/2017 5:14 PM CDT Jorge Macario MD CHEMISTRY Final R esult [address] [address] from Last 3 Months or Most Recently Relevant to Health Maintenance Insurance MEDICARE ADVANTAGE MR [employer] INS * Guarantor: [employer] Account Type Relation to Patient Date of Phone Billing Address [facility] [employer] [address] ATTN GAMALIEL MARTELL [phone] [id number] Care Teams Oncology Social Work Relationship Specialty Start Date End Date Jorge Macario MD [address] [facility] [place] [id number] PCP - General 01/23/06
--- OUTSIDE RECORDS SUMMARY | 2024-10-12 09:01 | XMS_ITS | Clinical Summary ---
Author Organization [facility] Address [address] [facility] , [facility] [address] [place] [address] Phone Care Team Providers Care Sports Bookmaker Name Role Phone infusion, infusion Unavailable [phone] Conditions or Problems Problem Name Problem Code Onset Date Status Entry Date Provider Comment Standard Description Annotate Restless legs 53106655 (SNOMED CT) 02/05 Active 02/05 Cass Marleni Cherucheril PA-C Restless legs Urinary urgency 09601069 (SNOMED CT) 02/05 Active 02/05 Cass Marleni Cherucheril PA-C Urgent desire to urinate B12 deficiency 591512022 (SNOMED CT) 02/05 Active 02/05 Cass Marleni Cherucheril PA-C Cobalamin deficiency Dysphagia 47150837 (SNOMED CT) 09/18 Active 09/18 Cody Lee MD Dysphagia Urinary incontinenc e 933183523 (SNOMED CT) 09/18 Active 09/18 Cody Lee MD Urinary incontinence MRI, brain, abnormal 968052218 (SNOMED CT) 09/26 Resolved 09/26 Cody Lee MD Magnetic resonance imaging of brain abnormal Weakness, left side of body 475554321 (SNOMED CT) 09/18 Active 09/18 Cody Lee MD Left hemiparesis Multiple sclerosis 74837418 (SNOMED CT) 10/11 Resolved 10/11 Cody Lee MD Multiple sclerosis Shoulder pain, left [id number] 705626 (SNOMED CT) 12/19 Resolved 12/19 Cody Lee MD Pain of left shoulder joint Multiple sclerosis, primary progressive 816012940 (SNOMED CT) 09/18 Active 09/18 Cody Lee MD Primary progressive multiple sclerosis Monitoring of chronic therapeutic medication 882133116 (SNOMED CT) 05/07 Active 05/07 Pati Mancilla [facility] Medication monitoring Shoulder pain, left [id number] 836175 (SNOMED CT) 12/19 Removed 12/19 Nessa Barr RN Pain of left shoulder joint Anxiety 889571617 (SNOMED CT) 10/09 Active 10/10 Elisa Leonard PhD Anxiety disorder Mild cognitive impairment 096611966 (SNOMED CT) 10/09 Active 10/10 Elisa Leonard PhD Mild neurocognitive disorder Vitamin D deficiency 11196650 (SNOMED CT) 10/11 Active 10/11 Harrison Parham MD Vitamin D deficiency Multiple sclerosis 05372552 (SNOMED CT) 10/11 Removed 10/11 Harrison Parham MD Multiple sclerosis Fall, hx of Z91.81 (ICD-10-CM) 09/26 Active 09/26 Harrison Parham MD History of falling Gait imbalance 510587182 (SNOMED CT) 09/26 Active 09/26 Harrison Parham MD Abnormal gait due to impairment of balance Numbness parethesias 98728511 (SNOMED CT) 09/26 Active 09/26 Harrison Parham MD Numbness MRI, brain, abnormal 921284910 (SNOMED CT) 09/26 Removed 09/26 Harrison Parham MD Magnetic resonance imaging of brain abnormal Medications Medication Instructions Start Date Stop Date Generic Name ND Provider ESCITALOPRAM OXALATE 20 MG TABS Take 1 tablet by mouth once a day as directed escitalopram oxalate [id number] Cody Lee MD PREDNISONE 10 MG TABS Take 6 on 1st,2nd and 3rd day; take 4 on 4th, 5th and 6th day, take 2 on the 7th, 8th and 9 days; then 1 one day 10th and 11 day, then stop. 09/18 prednisone 41834114657 Cody Lee MD DIMETHYL FUMARATE 240 MG CPDR TAKE ONE CAPSULE BY MOUTH TWICE DAILY. STORE IN ORIGINAL CONTAINER ATROOM TEMPERATURE. 09/18 dimethyl fumarate 77150728920 Cody Lee MD Vit B12 500 mcg, Multivitamin Vit B12 500 mcg, Multivitamin Cody Lee MD OCREVUS 300 MG/10ML SOLN q 6 month ocrelizumab 01259181437 Cody Burdick MD ESCITALOPRAM OXALATE 20 MG TABS Take 1 tablet by mouth once a day as directed 08/28 escitalopram oxalate 57270828662 Bry Guzman MD DIMETHYL FUMARATE 240 MG CPDR TAKE ONE CAPSULE BY MOUTH TWICE DAILY. STORE IN ORIGINAL CONTAINER ATROOM TEMPERATURE. 10/09 dimethyl fumarate 94518238016 Harrison Parham MD ESCITALOPRAM OXALATE 20 MG TABS Take 1 tablet by mouth once a day as directed 05/04 escitalopram oxalate 89082253285 Harrison Parham MD ESCITALOPRAM OXALATE 20 MG TABS Take 1 tablet by mouth once a day as directed 08/26 escitalopram oxalate 36771762053 Nessa Barr RN DIMETHYL FUMARATE 240 MG CPDR Take 1 capsule by mouth twice a day dimethyl fumarate 29957097452 Estuardo Hercules RN TECFIDERA 240 MG CPDR null dimethyl fumarate 11463098445 Harrison Parham MD DIMETHYL FUMARATE 240 MG CPDR TAKE ONE CAPSULE BY MOUTH TWICE DAILY. STORE IN ORIGINAL CONTAINER ATROOM TEMPERATURE. 10/09 dimethyl fumarate 68610577637 Harrison Parham MD ESCITALOPRAM OXALATE 10 MG TABS Take 1 tablet once a day 04/14 escitalopram oxalate 26197794901 Estuardo Hercules RN ESCITALOPRAM OXALATE 10 MG TABS 1 tablet by mouth once a day as directed 08/26 escitalopram oxalate 97776425281 Harrison Parham MD ESCITALOPRAM OXALATE 10 MG TABS Take 1 tablet once a day 04/14 escitalopram oxalate 67986049815 Estuardo Hercules RN VITAMIN D3 17273 UNIT ORAL TABLET 50,000 IU once weekly for 3 months then OTC Vitamin D 2,000 IU once a day VITAMIN D3 31410 UNIT ORAL TABLET Estuardo Hercules RN DIMETHYL FUMARATE 240 MG CPDR Take 1 capsule by mouth twice a day 10/09 dimethyl fumarate 75465742129 Estuardo Hercules RN TECFIDERA 240 MG CPDR null dimethyl fumarate 00196935164 Harrison Parham MD PREDNISONE 10 MG TABS Take 6 on 1st,2nd and 3rd day; take 4 on 4th, 5th and 6th day, take 2 on the 7th, 8th and 9 days; then 1 one day 10th and 11 day, then stop. 09/18 prednisone 37443866084 Harrison Parham MD PREDNISONE 10 MG TABS Take 6 on 1st,2nd and 3rd day; take 4 on 4th, 5th and 6th day, take 2 on the 7th, 8th and 9 days; then 1 one day 10th and 11 day, then stop. 04/14 PREDNISONE 69625849555 Harrison Parham MD ESCITALOPRAM OXALATE 10 MG TABS TAKE 1 TABLET DAILY 04/14 ESCITALOPRAM OXALATE 31966907741 Harrison Parham MD DIMETHYL FUMARATE 240 MG CPDR TAKE ONE CAPSULE BY MOUTH TWICE DAILY. STORE IN ORIGINAL CONTAINER ATROOM TEMPERATURE. 10/09 DIMETHYL FUMARATE 63613418632 Harrison Parham MD TECFIDERA 240 MG CPDR null 04/14 TECFIDERA 240 mg cpDR 86423624022 System Maintenance TECFIDERA 240 MG CPDR TAKE ONE CAPSULE BY MOUTH TWICE DAILY. STORE IN ORIGINAL CONTAINER AT ROOM TEMPERATURE. DIMETHYL FUMARATE 37929803358 Harrison Parham MD ESCITALOPRAM OXALATE 10 MG TABS One PO q day 09/27 ESCITALOPRAM OXALATE 17457653673 Harrison Parham MD TECFIDERA 120 & 240 MG ORAL Start: 120 mg PO bid x7 days, then 240 mg PO bid 05/22 DIMETHYL FUMARATE 86145829817 Harrison Parham MD PREDNISONE 20 MG TABS 3 PO for 3 days, then 2 PO q day for 3 days, then one for 6 days then stop. 05/22 PREDNISONE 25816998514 Harrison Parham MD TECFIDERA 240 MG CPDR TAKE ONE CAPSULE BY MOUTH TWICE DAILY. STORE IN ORIGINAL CONTAINER ATROOM TEMPERATURE. 11/15 DIMETHYL FUMARATE 64198084652 Harrison Parham MD PREDNISONE 20 MG TABS 3 PO for 3 days, then 2 PO q day for 3 days, then one for 6 days then stop. 05/22 PREDNISONE 75480840149 Harrison Parham MD TECFIDERA 240 MG CPDR TAKE ONE CAPSULE BY MOUTH TWICE DAILY (AFTER COMPLETING STARTER PACK) 01/26 DIMETHYL FUMARATE 52063928412 Harrison Parham MD TECFIDERA 120 & 240 MG ORAL Start: 120 mg PO bid x7 days, then 240 mg PO bid 05/22 DIMETHYL FUMARATE 17042721775 Harrison Parham MD VITAMIN D3 53659 UNIT ORAL TABLET 50,000 IU once weekly for 3 months then OTC Vitamin D 2,000 IU once a day 04/14 CHOLECALCIFEROL 95505849888 Harrison Parham MD TECFIDERA 120 & 240 MG ORAL Start: 120 mg PO bid x7 days, then 240 mg PO bid; Info: december. dose to 120 mg PO bid 10/21 DIMETHYL FUMARATE 32807107070 Harrison Parham MD VITAMIN D 50,000 IU once weekly for 3 months then OTC Vitamin D 2,000 IU once a day 10/13 VITAMIN D Harrison Parham MD Medications Administered No information available. Allergies, Adverse Reactions, Alerts Observed no known allergies at Results Date Name Value Unit Range Flag Description Office Visit: [facility] Risk [facility] - Screen patient [...] Serum or Plasma FRT4 * FREE T4 [id number] S * angioten sin 1 converting enzyme, serum ANTICARD IGM * cardioli pin antibody, IgM CARDIOLIPIN * U anti-card iolipin antibody, serum ANTICARD IGA * cardioli pin antibody, IgA [id number] * U/mL Proteina se-3 antibody SSB * [...] * Voltage G ated Calcium Channel Antibodies [id number] * Beta-2 G lycoprotein 1 antibody, IgA [id number] * Beta-2 G lycoprotein 1 antibody, IgM [id number] * Beta-2 G lycoprotein 1 antibody, IgG [...] CD3 * % CD3 lymphocyt es, percent [id number] * % B Lymphs % (CD19) ABS [...] Detail Appointment 11:00 AM Cass Gooden PA-C, [address], [address], [place], [address], Pending order Follow up SABRINA Pending order [...] B Surf luz marina Antigen Pending order JESUSIAT Virus Antibod y w/Reflex to Inhibition Assay Pending order Immunoglobulins IgG/A/M Pending order ALT (SGPT) Pending order AST (SGOT) Pending order CBC with Diff/Pl atelet Pending order CD4/CD8 Ratio Pr ofile Pending order CD19 (T and B Ce lls Total) Do not Schedule on Wednesday Pending order Hepatitis B Core Ab Pending order Hepatitis B Surf luz amrina Ab Pending order Hepatitis B Surf luz [...] order LP-Lumbar Punctu re (CSF processed at [facility]) Pending order Angiotensin-1 Co nverting Enzyme CSF [...] A b - Torres sendout (send to [facility]) Pending order Rapid Plasma Lesia gin [...] Name Date Entry Date ORDERS Follow up [facility]-[id number] Documentation of current medicatio ns [id number] MRI-Brain W/WO MS Protocol 2 [id number] MRI-Cervical W/WO MS Protocol [id number] MRI-Thoracic W/WO MS Protocol CPT-X0665A ProHance Gadolinium- based MR Contrast - 20 ml vial CPT-45977 MRI Brain W/WO CPT-45837 MRI Cervical W/WO CPT-06521 MRI Thoracic W/WO ORDERS Ocrevus Infusion ORDERS [...] w/Reflex to Inhibition Assay ORDERS Ocrevus Infusion [facility]-[id number] Urology Referral ORDERS Ferritin Serum ORDERS Instructions for Staff 02/05 ORDERS Follow up in clinic or telemedicine with provider or SABRINA [facility]-[id number] Urology Referral ORDERS Vitamin D 25 Hydroxy ORDERS Vitamin B12 ORDERS Vitamin D 25 Hydroxy ORDERS Vitamin B12 [id number] MRI-Brain W/WO MS Protocol 2 [id number] MRI-Thoracic W/WO MS Protocol [id number] MRI-Cervical W/WO MS Protocol ORDERS Hepatitis B [...] 2022 ORDERS Other Lab ORDERS Physical Therapy [id number] Other Referral ORDERS Follow up in clinic or telemedicine 09/18 [facility]-[id number] Documentation of current medicatio ns ORDERS Ocrevus Infusion ORDERS Follow up SABRINA in clinic 2021 ORDERS Patient Instructions ORDERS Methylmalonic Acid Serum (MMA) ORDERS TSH ORDERS NMO Spectrum Eval (AQP4 with Reflex to MO G) ORDERS Vitamin D 25 Hydroxy ORDERS Vitamin B12 ORDERS Vitamin B1 (Thiamine) 01/16 CPT-F1483A ProHance Gadolinium- based MR Contrast - 20 ml vial CPT-50599 MRI Cervical W/WO CPT-06107 MRI Thoracic W/WO [id number] MRI-Cervical W/WO MS Protocol [id number] MRI-Thoracic W/WO MS Protocol ORDERS Follow up ORDERS ALT (SGPT) ORDERS AST (SGOT) ORDERS CBC with Diff/Platelet 01/16 ORDERS CD4/CD8 Ratio Profile 01/16 ORDERS Hepatitis B Core Ab ORDERS Hepatitis B Surface Ab 01/16 ORDERS Hepatitis B Surface Antigen ORDERS Immunoglobulins IgG/A/M 2021 ORDERS CD19 (T and B Cells Total) 2 ORDERS JESUSITA Virus Antibody w/ Reflex to Inhibition Assay ORDERS Other Lab [id number] MRI-Brain W/O MS Protocol 10/01/21 CPT-77342 MRI Brain W/O ORDERS Other Order ORDERS Physical Therapy ORDERS CBC with Diff/Platelet 01/10 ORDERS AST (SGOT) ORDERS ALT (SGPT) [id number] Consult ORDERS Follow up after testing 2020 SCT-[id number] Documentation of current medicatio ns ORDERS Follow up [id number] MRI-Brain W/WO MS Protocol 2 [id number] MRI-Shoulder W/O CPT-V1360W ProHance Gadolinium- based MR Contrast - 20 ml vial CPT-87513 MRI Brain W/WO CPT-43212 MRI Upper Extremity (JOINT) W/O 6 ORDERS Patient Instructions [facility]-[id number] Documentation of current medicatio ns ORDERS Work Note ORDERS Follow up SABRINA ORDERS Follow up [id number] MRI-Brain W/WO MS Protocol 2 ORDERS Neuropsych Testing 0 [id number] MRI-Cervical W/WO MS Protocol [id number] MRI-Brain W/WO MS Protocol 2 CPT-53576 MRI Brain W/WO CPT-X9402A ProHance Gadolinium- based MR Contrast - 20 ml vial CPT-73448 MRI Cervical W/WO CPT-09488 Npsy Interview w/Provider - 1st hour 2019 CPT-07452 Npsy Interp/Rpt by Provider - 1st hour 12/10/16 CPT-99879 Npsy Interp/Rpt by Provider - 3 hours CPT-68082 Npsy Test by Provide r (2+ Tests) - 1st 30 min CPT-97031 Npsy Test by Provide r (2+ Tests) - 2.5 hours ORDERS Follow up after testing 2019 [facility]-[id number] Documentation of current medicatio ns ORDERS Follow up ORDERS Patient Instructions ORDERS Physical Therapy [id number] Other Referral ORDERS Patient Instructions ORDERS Patient Instructions SCT-[id number] Other Referral SCT-[id number] Documentation of current medicatio ns ORDERS JESUSITA Virus Antibody w/ Reflex to Inhibition Assay ORDERS ALT (SGPT) ORDERS AST (SGOT) ORDERS CBC with Diff/Platelet 05/22 ORDERS Vitamin D 25 Hydroxy ORDERS Follow up ORDERS Vitamin D 25 Hydroxy ORDERS CBC with Diff/Platelet 01/20 ORDERS AST (SGOT) ORDERS ALT (SGPT) ORDERS Other Test SCT-[id number] Documentation of current medicatio ns SCT-[id number] Other Referral [facility]-[id number] Documentation of current medicatio ns ORDERS Hepatic Function Panel (7) 2 [id number] MRI-Brain W/O [id number] MRI-Cervical W/O ORDERS CBC with Diff/Platelet 12/27 ORDERS Vitamin D 25 Hydroxy ORDERS JESUSITA Virus Antibody w/ Reflex to Inhibition Assay SCT-[id number] Documentation of current medicatio ns ORDERS Follow up [id number] LP-Lumbar Puncture 4 ORDERS LP-Lumbar Puncture ( CSF processed at [facility]) CPT-85938 Lumbar Puncture, Diagnostic CPT-10532 Fluoroscopy Guidance and Localization 201 04/24/11 CPT-6045F PQRS Fluoro Documented 10/03 CPT-91864 Blood Draw ORDERS CBC with Diff/Platelet 09/26 [...] [facility] 20 11/10/03 ORDERS Paraneoplastic Ab - [place] sendout (send to [facility]) ORDERS Glucose CSF [...] Virus Antibody w/ Reflex to Inhibition Assay [facility]-[id number] Documentation of current medicatio ns [facility]-[id number] Documentation of current medicatio ns Vital Signs [...]
[2024-10-12 09:15] LABS: Chloride* 105 mmol/L (96-114); Slide Review Reflex No
[2024-10-12 09:16] LABS: Potassium* 3.8 mmol/L (3.6-5.1); Sodium* 136 mmol/L (135-149)
[2024-10-12 09:18] LABS: Blood Urea Nitrogen* 14 mg/dL (5-24); Creatinine* 0.7 mg/dL (0.5-1.5); Est. Creatinine Clearance* 150.89; Estimated Glomerular Filt Rate 118 ml/min
[2024-10-12 09:19] LABS: Anion Gap 8 mEq/L (7-15); Calcium* 9.1 mg/dL (8.4-10.6); Carbon Dioxide* 23 mmol/L (20-32); Glucose* 95 mg/dL (60-115)
[2024-10-12 09:37] LABS: PCR FLU A Negative PCR FLU A (Negative); PCR FLU B Negative PCR FLU B (Negative); PCR RSV Negative PCR RSV (Negative); SARS PCR* POSITIVE SARS-CoV-2 (Negative)
--- NOTE | 2024-10-12 09:54 | ED_ITS ---
HPI - General Adult General Date Seen: 10/12/24 Chief complaint: Dizziness/Vertigo Stated complaint: dizziness Time Seen by Provider: 10/12/24 08:46 History of Present Illness HPI narrative: Patient is a 44-year-old man who is here by EMS after several falls yesterday. He has an underlying diagnosis of MS diagnosed he says about 5 years ago. He has chronic left-sided weakness and ataxia, dizziness, falls but feels that things are worse over the past 12 hours. He notes that he has been ?sick, when I asked for clarification on that he said he has felt foggy. He had a little bit of a cough for couple days but says that is gone. He denies fevers. He has not had nausea vomiting or diarrhea. He knocked out half of 1 of his front incisors and cut his lip during 1 of his falls. He has a little bruise on his left cheek. Not aware of any other significant injuries from his falls. He lives independently, he walks with a cane despite significant limitations using his left leg. He says he is generally able to get around okay until yesterday. His mom lives about [address] and he has a brother who is a little closer than that, does have reasonable family support. Related Data Home Medications ?Medication ?Instructions ?Recorded ?Confirmed ocrelizumab 30 mg/mL intravenous 600 mg IV [id number] 10/12/24 10/12/24 solution (Ocrevus) Allergies Allergy/AdvReac Type Severity Reaction Status Date / Time No Known Drug Allergies Allergy Verified 10/12/24 08:44 Review of Systems Status of ROS: Reports: 6 or more systems reviewed and unremarkable except as noted in History and below [facility] Social History Smoking Status: Never smoker Do you use any of these nicotine containing products: None How often do you have a drink containing alcohol: never How often do you have six or more drinks on one occasion: Never AUDIT-C Alcohol total score: 0 Non-prescribed substance use: denies use Exam Narrative: Exam Narrative: Vital signs reviewed In general, an alert, nontoxic mid age male. He looks comfortable, breathing easily. Head: Normocephalic, atraumatic. Eyes: Sclera clear. Left pupil is about 1 mm larger than the right, both her reactive. On extraocular movements, these are noted to be full on the left, on the right he does not have seemingly any action of the medial rectus muscle, has somewhat limited range of motion up and down although this is better than his medial gaze. He does have diplopia which is chronic. ENT: Mucous membranes moist. He has a through and through laceration of his upper lip although the exterior portion is tiny. There is a little bit of associated swelling. He has broken off half of his right central incisor, no bony instability. He has a small bruise on the left cheek without associated bony tenderness or deformity. Neck: Supple without adenopathy. Nontender to palpation. Heart: Regular rate and rhythm without murmur. Lungs: Clear. No increased work of breathing, crackles or wheezes. Abdomen: Soft, nontender to palpation. Extremities: Well perfused, pulses intact. No significant edema. Neurologic: He is alert, conversant, speech is fluent. Perhaps mild dysarthria. Extraocular movements as noted above. He has weakness and the left extremities and ataxia of the left upper extremity, chronic spasm noted in the left foot and significantly impaired movement of the left leg. He says that he feels these things are largely stable. Skin: Warm, dry well perfused. Affect: Normal. Const: Vital Signs, click to edit/add: Vital Signs - 24 hr 10/12/24 08:36 Temperature 98.4 F Pulse Rate [Pulse Oximeter] 88 Respiratory Rate 16 Blood Pressure [Le ft Upper Arm] 111/83 Pulse Oximetry 95 Oxygen Delivery Me thod Room Air Course Course ED Course: After initial evaluation, I ordered an IV as well as some blood work and a viral swab. His blood work is reassuring, all findings reviewed. His viral swab is positive for COVID. I did discuss his care initially with Neurology, who recommended an MRI of the brain cervical spine and thoracic spine with and without contrast to evaluate for possible MS flare/enhancing lesions. This can not be done until the end of the day due to the time needed for those studies. In the meantime, his COVID came back positive, and it seems likely that from the standpoint of managing his balance etcetera he is not going to be able to safely go home. Will discuss further with Radiology possibly admitting here with MR imaging to determine whether he also needs high-dose steroids. Discussed again with Neurology, they agree with admission for symptomatic management. MRI ordered but not completed at the time of his discharge from the ER. Patient will be admitted to the hospitalist service, further Neurology consultation can be obtained if the MRI is felt to show MS flare. Patient is comfortable with that plan. Vital Signs Vital signs: Initial Vital Signs Temperature 98.4 F 10/12/24 08:36 Temperature Source Temporal Artery Scan 10/12/24 08:36 Pulse Rate 88 10/12/24 08:36 Respiratory Rate 16 10/12/24 08:36 Blood Pressure 111/83 10/12/24 08:36 Blood Pressure Mean 92 10/12/24 08:36 Blood Pressure Position Supine 10/12/24 08:36 Pulse Oximetry 95 10/12/24 08:36 Oxygen Delivery Method Room Air 10/12/24 08:36 Vital Signs Temperature 98.4 F 10/12/24 08:36 Pulse Rate 88 10/12/24 08:36 Respiratory Rate 16 10/12/24 08:36 Blood Pressure 111/83 10/12/24 08:36 Pulse Oximetry 95 10/12/24 08:36 Oxygen Delivery Method Room Air 10/12/24 08:36 Temperature 98.4 F 10/12/24 08:36 Pulse Rate 88 10/12/24 08:36 Respiratory Rate 16 10/12/24 08:36 Blood Pressure 111/83 10/12/24 08:36 Pulse Oximetry 95 10/12/24 08:36 Oxygen Delivery Method Room Air 10/12/24 08:36 Medical Decision Making Lab Data Labs: Lab Results 10/12/24 10/12/24 Range/Units 08:52 10:37 WBC 10.11 (4.50-11.00) K/uL RBC 5.10 (4.30-5.90) m/uL Hgb 15.2 (13.5-17.5) gm/dL Hct 44.9 (37.0-53.0) % MCV 88 (80-100) fL MCH 30 (26-34) pg MCHC 34 (32-36) gm/dL RDW Coeff of Celsa 11.7 (11.5-15.5) % Plt Count 159 (140-440) K/uL Neut % (Auto) 82.0 H (42.0-72.0) % Lymph % (Auto) 4.0 L (20-44) % [place] % (Auto) 13.4 H (0.0-11.0) % Eos % (Auto) 0.2 (0.0-7.0) % Baso % (Auto) 0.2 (0.0-3.0) % Neut # (Auto) 8.30 H (1.7-7.0) K/uL Lymph # (Auto) 0.40 L (0.90-2.90) K/uL [place] # (Auto) 1.40 H (0.00-0.90) K/UL Eos # (Auto) 0.02 (0.00-0.50) K/uL Baso # (Auto) 0.02 (0.00-0.30) K/uL Abs Immat Gran (auto) 0.02 (0.00-0.30) K/uL Imm/Tot Granulo (auto) 0.2 % Sodium 136 (135-149) mmol/L Potassium 3.8 (3.6-5.1) mmol/L Chloride 105 (96-114) mmol/L Carbon Dioxide 23 (20-32) mmol/L Anion Gap 8 (7-15) mEq/L BUN 14 (5-24) mg/dL Creatinine 0.7 (0.5-1.5) mg/dL Estimated Creat Clear 150.89 Estimated GFR 118 ml/min Glucose 95 (60-115) mg/dL Calcium 9.1 (8.4-10.6) mg/dL Urine Color Yellow (Yellow) Urine Appearance Clear (Clear) Urine pH 6.0 (5.0-8.5) Ur Specific Elmer 1.020 (1.000-1.030) Urine Protein Trace A (Negative) Urine Glucose (UA) Negative (Negative) Urine Ketones 3+ A (Negative) Urine Blood Negative (Negative) Urine Nitrite Negative (Negative) Urine Bilirubin Negative (Negative) Urine Urobilinogen 1.0 (0.2-1.0) Ur Leukocyte Esterase Negative (Negative) Urine RBC 0-2 (0-2) Urine WBC 2-5 (0-5) Ur Squamous Epith Cells Few (None-Few) Urine Bacteria Few A (None) Urine Mucus Moderate A (None) SARS-CoV-2 (PCR) POSITIVE SARS-CoV-2 A (Negative) Influenza Type A (PCR) Negative PCR FLU A (Negative) Influenza Type B (PCR) Negative PCR FLU B (Negative) RSV (PCR) Negative PCR RSV (Negative) Discharge Plan Discharge Patient Disposition: Admitted As Observation
--- NOTE | 2024-10-12 10:19 | CRLHL7_ITS ---
For Patients: As a result of the Cures Act, medical imaging exams and procedure reports are released immediately into your electronic medical record. You may view this report before your referring provider. If you have questions, please contact your health care provider. INDICATION: Multiple sclerosis, worsening symptoms. TECHNIQUE: Multisequence multiplanar MRI of the brain prior to and following administration of 20 cc Dotarem gadolinium-based intravenous contrast. Demyelinating protocol was utilized. COMPARISON: MRI brain dated 12/26/2020. FINDINGS: No interval change in scattered foci periventricular and juxtacortical signal abnormality within the supratentorial white matter of both cerebral hemispheres. Additional unchanged scattered infratentorial signal abnormality involving the ilan, middle cerebellar peduncles, and cerebellar hemispheres. No new T2 hyperintense or enhancing lesion. No evidence of acute ischemia. Similar moderate T1 hypointense lesion load. No evidence of diffuse cerebral atrophy. The ventricles are unchanged in size. Flow voids of the larger intracranial arteries are preserved. Normal calvarial bone marrow signal intensity. Symmetric globes. Mild scattered paranasal sinus mucosal thickening. IMPRESSION: 1. No new T2 hyperintense or enhancing lesion. 2. Moderate supratentorial and infratentorial signal abnormality consistent with chronic demyelinating plaques. 3. Stable moderate T1 hypointense lesion load. No evidence of diffuse cerebral atrophy. Dictated by Angel Marie MD @ 10/12/2024 3:02:00 PM (Electronically Signed)
--- NOTE | 2024-10-12 10:19 | CRLHL7_ITS ---
For Patients: As a result of the Century Cures Act, medical imaging exams and procedure reports are released immediately into your electronic medical record. You may view this report before your referring provider. If you have questions, please contact your health care provider. Indication: Multiple sclerosis, worsening symptoms. Technique: Multisequence multiplanar MRI of the thoracic spine prior to and following administration of 20 cc Dotarem gadolinium based intravenous contrast. Comparison: None available. Findings: Motion degraded exam. Focal dorsal intramedullary signal abnormality at the T11-T12 level with mild associated spinal cord atrophy (series 5, image 11). No focus of abnormal enhancement. Mild accentuation of the thoracic kyphosis. Vertebral body heights are maintained. Bone marrow signal intensity is within normal limits. There is mild multilevel facet joint arthrosis. Evaluation of the individual levels demonstrates no significant spinal canal or neural foraminal stenosis. Impression: 1. Motion degraded exam. 2. Focal intramedullary signal abnormality at T11-T12 with associated spinal cord atrophy, consistent with chronic demyelinating plaque. 3. No abnormal enhancement to indicate active demyelination. 4. Mild thoracic spondylosis with no significant spinal canal or neural foraminal stenosis. Dictated by Angel Marie MD @ 10/12/2024 3:18:45 PM (Electronically Signed)
--- NOTE | 2024-10-12 10:19 | CRLHL7_ITS ---
For Patients: As a result of the Century Cures Act, medical imaging exams and procedure reports are released immediately into your electronic medical record. You may view this report before your referring provider. If you have questions, please contact your health care provider. Indication: Multiple sclerosis, worsening symptoms. Technique: Multisequence multiplanar MRI of the cervical spine prior to and following administration of 20 cc Dotarem gadolinium based intravenous contrast. Comparison: MRI cervical spine dated 10/09/2019. Findings: No interval change in multifocal intramedullary signal abnormality with dominant lesions at the cervicomedullary junction (series 6, image 3) in the left hemicord at the C3 level (series 6, image 10) and in the dorsal cord at the C4 level (series 6, image 14). No new intramedullary T2 hyperintense or enhancing lesion. Normal vertebral alignment and stature. Similar multilevel disc desiccation and height loss. Unremarkable prevertebral soft tissues. C2-C3: No significant spinal canal or neural foraminal stenosis. C3-C4: Small posterior disc osteophyte complex without significant spinal canal stenosis. Mild bilateral neural foraminal narrowing resulting from uncovertebral arthrosis. C4-C5: Slight worsening of now mild spinal canal stenosis resulting from a posterior disc osteophyte complex. Slight worsening of moderate right and mild left neural foraminal narrowing associated with uncovertebral arthrosis. C5-C6: Slight worsening of mild-moderate spinal canal stenosis resulting from a posterior disc osteophyte complex. Slight worsening of moderate bilateral neural foraminal narrowing sequela of uncovertebral and facet arthrosis. C6-C7: Slight worsening of now mild spinal canal stenosis resulting from a posterior disc osteophyte complex. Mild bilateral neural foraminal narrowing associated with uncovertebral arthrosis. C7-T1: Mild facet joint arthrosis. No significant spinal canal or neural foraminal stenosis. Impression: 1. No interval change in multifocal signal abnormality within the cervical spinal cord consistent with chronic demyelinating plaques. 2. No new intramedullary T2 hyperintense or enhancing lesion. 3. At C4-C5, slight worsening of mild spinal canal stenosis and moderate right neural foraminal narrowing. 4. At C5-C6, slight worsening of mild-moderate spinal canal stenosis and moderate bilateral neural foraminal narrowing. 5. At C6-C7, slight worsening of mild spinal canal stenosis and mild bilateral neural foraminal narrowing. Dictated by Angel Marie MD @ 10/12/2024 3:08:59 PM (Electronically Signed)
[2024-10-12 10:42] LABS: Appearance Urine Clear (Clear); Bilirubin Urine Negative (Negative); Blood Urine Negative (Negative); Color Urine Yellow (Yellow); Glucose Urine Negative (Negative); Ketones Urine 3+ (Negative); Leukocyte Esterase Urine Negative (Negative); Nitrite Urine Negative (Negative); Protein Urine Trace (Negative)
[2024-10-12 10:51] LABS: Bacteria Urine Few; Mucus Urine Moderate; RBC Urine 0-2 (0-2); Squamous Epithelial Cell Urine Few (None-Few)
--- NOTE | 2024-10-12 11:01 | ED.NURSE ---
Pt report given to theresa RN, pt to room 274 after MRI.
--- NOTE | 2024-10-12 14:14 | PM.IMHP1 ---
Hospitalist- H&P: HPI History of Present Illness Date Seen: 10/12/24 Chief complaint: dizziness Narrative: Chang Manzo is a 44 year old male past medical history of multiple sclerosis with left sided deficits, only prescription medication is Ocrevus q 6 months, is admitted to the medical floor from the ED for worsening weakness in setting of positive Covid finding. Patient reports 2-3 day history of increasing weakness, with 3 falls yesterday, 1 of those falls resulting in him losing his front tooth, more foggy than usual. This is his 2nd COVID infection and with his 1st he experience the same profound weakness. Currently, denies headache or dizziness. Has had a dry cough with congestion. Denies shortness of breath. Denies chest pain or tightness. No recent fevers. Denies abdominal pain, nausea, vomiting, diarrhea. No change in urination. Remains mobile with use of a cane at all times. Left-sided deficit is chronic. Alcohol use is rare. Denies tobacco use. Typically vapes THC. PCP is Dr. Macario at [place]. Followed by [facility]. Recently moved to [place], home built by [employer] Review of Systems Narrative: REVIEW OF SYSTEMS: Complete review of systems performed and negative unless otherwise stated in HPI or below. [facility] Medical History (Updated 10/12/24 @ 14:51 by Catrachita Gross PA-C) Fall ?W19.XXXA - Unspecified fall, initial encounter (ICD-10) Multiple sclerosis ?G35 - Multiple sclerosis (ICD-10) Social History (Updated 10/12/24 @ 14:29 by Catrachita Gross PA-C) Smoking Status: Never smoker Do you use any of these nicotine containing products: None and Vaping Products Smokeless tobacco user details: THC How often do you have a drink containing alcohol: monthly or less How often do you have six or more drinks on one occasion: Less than monthly AUDIT-C Alcohol total score: 2 Non-prescribed substance use: marijuana (any form) Meds Home Medications and Allergies Home Medications ?Medication ?Instructions ?Recorded ?Confirmed ?Type ocrelizumab 30 mg/mL intravenous 600 mg IV [id number] 10/12/24 10/12/24 History solution (Ocrevus) Allergies Allergy/AdvReac Type Severity Reaction Status Date / Time No Known Drug Allergies Allergy Verified 10/12/24 08:44 Exam Narrative: Exam Narrative: PHYSICAL EXAM General: Pleasant, conversant, NAD HEENT: Normocephalic, sclera white, EOMI, oral mucosa moist. Scab right upper lip, loss of right front tooth Cardiovascular: RRR, S1S2. No pitting edema Pulmonary: CTA bilaterally without rhonchi, rales, expiratory wheezes. No dyspnea on room air Abdominal: Soft, nondistended, NTTP Neurological: Alert, answering questions appropriately, cranial nerves intact, left-sided UE/LE deficits noted Extremities: No gross joint deformity or swelling. Bilateral knees with bruising and superficial abrasions, no bleeding or drainage. Neurovascularly intact Skin: Warm, dry. Const: Vital Signs, click to edit/add: Vital Signs - 24 hr 10/12/24 08:36 Temperature 98.4 F Pulse Rate [Pulse Oximeter] 88 Respiratory Rate 16 Blood Pressure [Le ft Upper Arm] 111/83 Pulse Oximetry 95 Oxygen Delivery Me thod Room Air Hospitalist - H&P: Result Labs Labs: Short CBC 10/12/24 Range/Units 08:52 WBC 10.11 (4.50-11.00) K/uL Hgb 15.2 (13.5-17.5) gm/dL Hct 44.9 (37.0-53.0) % Plt Count 159 (140-440) K/uL BMP 10/12/24 08:52 Sodium 136 Potassium 3.8 Chloride 105 Carbon Dioxide 23 BUN 14 Creatinine 0.7 Glucose 95 Calcium 9.1 Urine 10/12/24 Range/Units 10:37 Urine Color Yellow (Yellow) Urine Appearance Clear (Clear) Urine pH 6.0 (5.0-8.5) Ur Specific [place] 1.020 (1.000-1.030) Urine Protein Trace A (Negative) Urine Glucose (UA) Negative (Negative) Assessment and Plan Assessment and plan (1) COVID-19: Problem comment: -symptomatic 2-3 days with increased weakness, cough -start Paxlovid (patient's mother will machine operator hop picker from [facility]) -mucinex, incentive spirometry, aerobika -supportive cares as needed Status: Acute (2) Multiple sclerosis: Problem comment: -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 Recommendation to be treated with high-dose steroids Status: Acute (3) Fall: Problem comment: -acute, chronic, recurrent -increased in setting of COVID-19 -resulting in bruising, abrasions of knees and loss of right front tooth Status: Acute Plan Pharmacy to confirm home medications. Question if on escitalopram for depression. Total Time Spent Total Time Spent: Today I spent 75 minutes seeing the patient, discussing the patient with ER staff, reviewing Expanse and Epic notes/diagnostics, discussing the care plan with our team that includes social work, PT/OT, pharmacy, RT, shelter and documenting my impressions and plan in the medical record.
[2024-10-12 14:56] LABS: Magnesium* 1.8 mg/dL (1.5-2.6)
[2024-10-12] MEDS: NIRMATRELVIR/RITONAVIR DOSEPAK 3 TAB PO (16:38)
[2024-10-12 16:50] VITALS: BP 135/75; PULSE 92; RESP 16; TEMP 36.9; O2SAT 95; BMI 36.8
[2024-10-12 19:00] VITALS: BP 119/87; PULSE 83; RESP 18; TEMP 36.9; O2SAT 96
[2024-10-12] MEDS: guaiFENesin 600 MG TAB.ER.12H 1200 MG PO (20:56)
[2024-10-12] MEDS: ENOXAPARIN 40 MG/0.4 ML INJ SUBCUT (20:56)
[2024-10-12] MEDS: SODIUM CHLORIDE 0.9 % (FLUSH) 10 ML SYRINGE 5 ML IVF (20:57)
[2024-10-12 23:00] VITALS: BP 125/80; PULSE 96; RESP 18; TEMP 37.3; O2SAT 96
[2024-10-13 03:00] VITALS: BP 120/75; PULSE 83; RESP 16; TEMP 37.6; O2SAT 95
--- NOTE | 2024-10-13 06:04 | PC.NURSE ---
End of shift [id number]: Pt AxOx4, pleasant, and cooperative. VSS on RA. Pt able to sleep for majority of the night. Continent of the bladder, using urinal at bedside. A2 GB Cane. L sided weakness r/t diagnosed MS. Tolerating reg diet/fluids well. Pt denies pain/SOB/nausea. Pt appears resting with call light in reach.
[2024-10-13 06:48] LABS: Hemoglobin* 15.1 gm/dL (13.5-17.5); Mean Corpuscular HGB Conc 34 gm/dL (32-36); Mean Corpuscular Hemoglobin 30 pg (26-34); Mean Corpuscular Volume 89 fL (80-100); Platelet Count* 145 K/uL (140-440); Red Blood Count 5.07 m/uL (4.30-5.90); White Blood Count* 7.94 K/uL (4.50-11.00)
[2024-10-13 07:16] LABS: Chloride* 103 mmol/L (96-114); Potassium* 3.8 mmol/L (3.6-5.1); Sodium* 136 mmol/L (135-149)
[2024-10-13 07:19] LABS: Anion Gap 9 mEq/L (7-15); Carbon Dioxide* 24 mmol/L (20-32); Creatinine* 0.7 mg/dL (0.5-1.5); Est. Creatinine Clearance* 155.36; Estimated Glomerular Filt Rate 118 ml/min
[2024-10-13 07:20] LABS: Blood Urea Nitrogen* 14 mg/dL (5-24); Calcium* 8.6 mg/dL (8.4-10.6); Glucose* 85 mg/dL (60-115)
[2024-10-13 07:22] LABS: Slide Review Reflex No
[2024-10-13 09:22] VITALS: BP 121/78; PULSE 77; PULSE 83; RESP 16; O2SAT 93
[2024-10-13] MEDS: guaiFENesin 600 MG TAB.ER.12H 1200 MG PO (09:31)
[2024-10-13] MEDS: NIRMATRELVIR/RITONAVIR DOSEPAK 3 TAB PO (09:31)
--- NOTE | 2024-10-13 10:42 | PM.DS1 ---
DS: Providers Provider Date Seen: 10/13/24 Date of admission: 10/12/24 11:18 Primary care physician: Jorge Macario MD Admitting Clin[facility] Consults: 10/12/24 14:40 Consult to Occupational Therapy [CONS] Routine Comment: Reason(s) for OT Consult:: Evaluate and Treat Any Restrictions?:: No Restrictions Consult to Physical Therapy [CONS] Routine Comment: Reason(s) for PT Consult:: Evaluate and Treat Any Restrictions?:: No Restrictions Attending Physician on discharge: JUAN [facility] Date of Discharge: 10/13/24 DS: Diagnosis Discharge Diagnosis (1) COVID-19: Status: Acute Problem details: -symptomatic 2-3 days with increased weakness, cough -start Paxlovid (patient's mother will citrus picker from [facility]) -mucinex, incentive spirometry, aerobika -supportive cares as needed Symptomatically improving on day of discharge, dizziness has resolved, brain fog improved. PT/OT consult completed. Recommending bariatric walker for wider wheel base, allowing for patient's broader stance/gait. Continue Paxlovid. 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 Recommendation to be treated with high-dose steroids MRIs with noted chronic plaques, stable lesions, no new enhancing lesions reported. At C2-C7, slight worsening of mild spinal canal stenosis and mild bilateral neural foraminal narrowing noted. Ongoing outpatient management. (3) Fall: Status: Acute Problem details: -acute, chronic, recurrent -increased in setting of COVID-19 -resulting in bruising, abrasions of knees and loss of right front tooth PT/OT consults completed, as above recommendations for bariatric walker. Recommend outpatient follow-up with his dentist following tooth trauma. DS: Summary Hospital Course Hospital Course: [age] year old male was admitted to the medical floor for increased weakness, dizziness, fall in setting of chronic multiple sclerosis and acute COVID infection. Course of care and details as noted above. Dizziness resolved and brain fog improved overnight. PT/OT consults completed. Will return home with bariatric walker and family support. Continue Paxlovid. Outpatient follow-up with PCP and dentist. Remainder of chronic medical comorbidities were monitored and managed with home medications. Status at Discharge Functional status at discharge: uses cane/walker Overall status at discharge: patient is back to baseline Time Spent with Patient Time attestation: Total time spent providing and/or coordinating discharge services: Time spent: Greater than 30 minutes Exam Narrative: Exam Narrative: PHYSICAL EXAM General: Pleasant, conversant, NAD Cardiovascular: RRR Pulmonary: No dyspnea Neurological: Alert, answering questions appropriately Skin: Warm, dry. Const: Vital Signs, click to edit/add: Vital Signs - 24 hr 10/12/24 16:50 10/12/24 16:50 10/12/24 19:00 Temperature 98.5 F 98.5 F Pulse Rate [Pulse Oximeter] 92 83 Respiratory Rate 16 16 18 Blood Pressure [Le ft Arm] Blood Pressure [Ri ght Arm] 135/75 119/87 Pulse Oximetry 95 95 96 Oxygen Delivery Me thod Room Air Room Air Room Air 10/12/24 23:00 10/13/24 03:00 10/13/24 09:22 Temperature 99.2 F 99.7 F H Pulse Rate [Pulse Oximeter] 96 83 83 Respiratory Rate 18 16 16 Blood Pressure [Le ft Arm] Blood Pressure [Ri ght Arm] 125/80 120/75 Pulse Oximetry 96 95 Oxygen Delivery Me thod Room Air Room Air 10/13/24 09:22 Temperature Pulse Rate [Pulse Oximeter] 77 Respiratory Rate 16 Blood Pressure [Le ft Arm] 121/78 Blood Pressure [Ri ght Arm] Pulse Oximetry 93 Oxygen Delivery Me thod Room Air DS: Data Data Completed and Pending Labs on day of discharge: Labs from last 24 hours 10/13/24 10/12/24 10/12/24 06:15 14:40 10:37 WBC 7.94 RBC 5.07 Hgb 15.1 Hct 45.0 MCV 89 MCH 30 MCHC 34 Plt Count 145 Sodium 136 Potassium 3.8 Chloride 103 Carbon Dioxide 24 Anion Gap 9 BUN 14 Creatinine 0.7 Estimated Creat Clear 155.36 Estimated GFR 118 Glucose 85 Calcium 8.6 Magnesium Urine Color Yellow Urine Appearance Clear Urine pH 6.0 Ur Specific [place] 1.020 Urine Protein Trace A Urine Glucose (UA) Negative Urine Ketones 3+ A Urine Blood Negative Urine Nitrite Negative Urine Bilirubin Negative Urine Urobilinogen 1.0 Ur Leukocyte Esterase Negative Urine RBC 0-2 Urine WBC 2-5 Ur Squamous Epith Cells Few Urine Bacteria Few A Urine Mucus Moderate A Lab Acknowledgement Test Added 10/12/24 08:52 WBC RBC Hgb Hct MCV MCH MCHC Plt Count Sodium Potassium Chloride Carbon Dioxide Anion Gap BUN Creatinine Estimated Creat Clear Estimated GFR Glucose Calcium Magnesium 1.8 Urine Color Urine Appearance Urine pH Ur Specific [place] Urine Protein Urine Glucose (UA) Urine Ketones Urine Blood Urine Nitrite Urine Bilirubin Urine Urobilinogen Ur Leukocyte Esterase Urine RBC Urine WBC Ur Squamous Epith Cells Urine Bacteria Urine Mucus Lab Acknowledgement Preliminary micro results at discharge 10/12/24 10:37 Urine Culture - Preliminary Urine,Clean Catch NO GROWTH AFTER 24 HOURS Imaging MR Brain: Attestation: I have reviewed the pertinent imaging results. Radiologist's impression: COMPARISON: MRI brain dated 12/26/2020. FINDINGS: No interval change in scattered foci periventricular and juxtacortical signal abnormality within the supratentorial white matter of both cerebral hemispheres. Additional unchanged scattered infratentorial signal abnormality involving the ilan, middle cerebellar peduncles, and cerebellar hemispheres. No new T2 hyperintense or enhancing lesion. No evidence of acute ischemia. Similar moderate T1 hypointense lesion load. No evidence of diffuse cerebral atrophy. The ventricles are unchanged in size. Flow voids of the larger intracranial arteries are preserved. Normal calvarial bone marrow signal intensity. Symmetric globes. Mild scattered paranasal sinus mucosal thickening. IMPRESSION: 1. No new T2 hyperintense or enhancing lesion. 2. Moderate supratentorial and infratentorial signal abnormality consistent with chronic demyelinating plaques. 3. Stable moderate T1 hypointense lesion load. No evidence of diffuse cerebral atrophy. MR C-spine: Attestation: I have reviewed the pertinent imaging results. Radiologist's impression: Comparison: MRI cervical spine dated 10/09/2019. Findings: No interval change in multifocal intramedullary signal abnormality with dominant lesions at the cervicomedullary junction (series 6, image 3) in the left hemicord at the C3 level (series 6, image 10) and in the dorsal cord at the C4 level (series 6, image 14). No new intramedullary T2 hyperintense or enhancing lesion. Normal vertebral alignment and stature. Similar multilevel disc desiccation and height loss. Unremarkable prevertebral soft tissues. C2-C3: No significant spinal canal or neural foraminal stenosis. C3-C4: Small posterior disc osteophyte complex without significant spinal canal stenosis. Mild bilateral neural foraminal narrowing resulting from uncovertebral arthrosis. C4-C5: Slight worsening of now mild spinal canal stenosis resulting from a posterior disc osteophyte complex. Slight worsening of moderate right and mild left neural foraminal narrowing associated with uncovertebral arthrosis. C5-C6: Slight worsening of mild-moderate spinal canal stenosis resulting from a posterior disc osteophyte complex. Slight worsening of moderate bilateral neural foraminal narrowing sequela of uncovertebral and facet arthrosis. C6-C7: Slight worsening of now mild spinal canal stenosis resulting from a posterior disc osteophyte complex. Mild bilateral neural foraminal narrowing associated with uncovertebral arthrosis. C7-T1: Mild facet joint arthrosis. No significant spinal canal or neural foraminal stenosis. Impression: 1. No interval change in multifocal signal abnormality within the cervical spinal cord consistent with chronic demyelinating plaques. 2. No new intramedullary T2 hyperintense or enhancing lesion. 3. At C4-C5, slight worsening of mild spinal canal stenosis and moderate right neural foraminal narrowing. 4. At C5-C6, slight worsening of mild-moderate spinal canal stenosis and moderate bilateral neural foraminal narrowing. 5. At C6-C7, slight worsening of mild spinal canal stenosis and mild bilateral neural foraminal narrowing. MR thoracic spine: Attestation: I have reviewed the pertinent imaging results. Radiologist's impression: Findings: Motion degraded exam. Focal dorsal intramedullary signal abnormality at the T11-T12 level with mild associated spinal cord atrophy (series 5, image 11). No focus of abnormal enhancement. Mild accentuation of the thoracic kyphosis. Vertebral body heights are maintained. Bone marrow signal intensity is within normal limits. There is mild multilevel facet joint arthrosis. Evaluation of the individual levels demonstrates no significant spinal canal or neural foraminal stenosis. Impression: 1. Motion degraded exam. 2. Focal intramedullary signal abnormality at T11-T12 with associated spinal cord atrophy, consistent with chronic demyelinating plaque. 3. No abnormal enhancement to indicate active demyelination. 4. Mild thoracic spondylosis with no significant spinal canal or neural foraminal stenosis. Discharge Plan Discharge Disposition: Home, Self-Care Date of Admission: 10/12/24 11:18 Attending Provider on Discharge: Catrachita Gross Primary Care Provider: Jorge Macario Condition: Improved Anticipated Discharge Date/Time: 10/13/24 10:40 Discharge Medications: New Paxlovid 300 mg (150 mg x 2)-100 mg tablets,dose pack See Rx Instructions .ROUTE .COMPLEX Qty: 30 0RF Rx Instructions: take TWO 150 mg tablets of nirmatrelvir with ONE 100 mg tablet of ritonavir twice daily for 5 days Continued Ocrevus 30 mg/mL solution 600 mg IV [id number] Patient Comments: OUT PATIENT INFU$ION cholecalciferol (vitamin D3) 125 mcg (5,000 unit) capsule 125 mcg PO DAILY Discharge Orders: Discharge Order (Routine); Ordered 10/13/24 Ordered By: Catrachita Gross Patient Education: COVID-19 (Coronavirus Disease 2019) (GEN) Additional Instructions: Recommend outpatient follow-up with your dentist for your tooth trauma Activity Level: Activity as Tolerated Discharge Diet: Regular Follow Up Appointments: Jorge Macario MD [Primary Care Provider] - (Post hospital follow-up 7-10 days) Forms: Mark media Info Instructions
[2024-10-13 11:00] VITALS: BP 126/84; PULSE 78; RESP 18; O2SAT 97
--- NOTE | 2024-10-13 11:44 | REH.OT ---
OT orders received, following PT eval, no OT needs indentified and Pt planning to DC back to own home.
--- NOTE | 2024-10-13 12:15 | PC.NURSE ---
Nursing Care Hours: [id number] Pt this shift calm and cooperative, alert and oriented. No c/o pain. VSS on RA. Minimal productive cough of clear greenish yellow mucus per pt. Ambulated with SB assist with cane. IV removed for discharge, instruction went over with pt and pt parent. All questions and concerns addressed. Pt wheeled out to vehicle in stable condition.
== END 2024-10-13 11:37 | disposition home or self-care (01) ==
LOC: ED 11:18 → MEDSURG 11:18
PROVIDERS: Physician Assistant; Admitting Provider Family Medicine; Emergency Provider Emergency Medicine; PCP Family Medicine; Visit Provider Family Medicine
DX: U07.1 COVID-19 (principal); R29.6 Repeated falls; G35 Multiple sclerosis; R53.1 Weakness; S00.83XA Contusion of other part of head, initial encounter; R27.0 Ataxia, unspecified
CPT/HCPCS: 36415; 70553; 72156; 72157; 80048; 81001; 83735; 85025; 85027; 87086; 87631; 96372; 97161; 99284; 99285; A9270; A9575; G0378; J1650